=== PATIENT | female | born 1935 | race Caucasian/White ===

== ENCOUNTER 2017-10-30 10:21 | Outpatient (CLI) | payer MEDICARE, MEDICAID ==
--- NOTE | 2017-10-31 11:52 | MMO ---
MAMMOGRAM DIGITAL SCREENING BILATERAL: DATE: 10/30/17 HISTORY: 81-year-old female for routine bilateral screening mammogram. COMPARISON: 07/26/14, 08/05/15, and 10/29/16. TECHNIQUE: Digital mammographic views. Computer-aided detection (CAD) utilized. FINDINGS: There are scattered areas of fibroglandular density. There is no evidence of suspicious mass, suspicious calcifications, or architectural distortion. The re is no significant interval change since the prior mammogram. IMPRESSION: 1. BIRADS 1 - Negative. 2. Recommendation: routine bilateral annual screening mammogram (unless the patient develops suspici ous clinical findings that would warrant earlier imaging follow up). maria victoria [] POS: [facility]
== END 2017-10-30 10:22 | disposition home or self-care (01) ==
LOC: SCSMAMMO 10:21
PROVIDERS: ATTEND Family Medicine
DX: Z12.31 Encounter for screening mammogram for malignant neoplasm of breast (principal)
CPT/HCPCS: 77067; G0202

== ENCOUNTER 2018-02-26 19:28 | Inpatient (IN) | payer MEDICARE, MEDICAID ==
--- NOTE | 2018-02-26 22:40 | HP ---
DATE OF ADMISSION: 02/26/2018 REQUESTING PHYSICIAN: Dr. Rocha. ATTENDING PHYSICIAN: Dr. Back. CONSULTATIONS: Orthopedics, Dr. Richardson. HISTORY OF PRESENT ILLNESS: Patient is an 82-year-old female who was transferred here from [place] for reported left hip fracture. According to the patient this afternoon, she was walking and stepped in a hole and jammed her left hip and fell on it. She was taken to the emergency room, there underw ent evaluation and examination was noted to have an impacted left subcapital proximal femur fracture, at which time, she was transferred to us for evaluation for admission and obtain Orthopedic consulta tion. Patient denied loss of consciousness, shortness of breath, chest pain, or any syncopal type sy mptoms. ALLERGIES: CODEINE, HYDROCODONE, and TRAMADOL. CURRENT MEDICATIONS: Pravastatin, albuterol, pantoprazole, Eliquis, budesonide, baclofen, furosemide , glipizide, spironolactone, metoprolol, ferrous sulfate, and prednisone. PAST MEDICAL HISTORY: COPD, coronary artery disease, atrial fibrillation, peripheral vascular diseas e, osteoporosis, and type 2 diabetes. PAST SURGICAL HISTORY: Bilateral stent placement in lower extremities and cyst removal of abdomen. SOCIAL HISTORY: Patient is a former tobacco user, quit more than 3 years ago. Denies drug or alcoho l use. She currently lives independently at home. FAMILY MEDICAL HISTORY: Diabetes and hypertension. REVIEW OF SYSTEMS: Ten-point review of systems is negative, as otherwise stated. PHYSICAL EXAMINATION: VITAL SIGNS: Blood pressure 108/63, heart rate 91, respirations 16, temperature is 97.5, oxygen satu ration is 96% on 2 L via nasal cannula. GENERAL: Patient is resting comfortably in bed. She is actually sitting on the side of the bed, bec ause she wants to ambulate. This was stressed to her that she should not be doing that with her frac ture. Patient is alert and oriented x2. Marlene coma scale is 15. HEENT: Head is normocephalic, atraumatic. Eyes: Extraocular motion intact. PERRLA bilaterally. E ars are atraumatic without discharge. Nose atraumatic without discharge. Oropharynx is clear. NECK: Nontender. Trachea is midline. No JVD. CHEST: Scattered rhonchi and expiratory wheezes. HEART: Irregularly irregular. ABDOMEN: Soft, flat, nontender with active bowel sounds. Pelvis is stable. EXTREMITIES: Patient's left hip is tender, but surprisingly not distended considering that she has f racture. NEUROVASCULAR: She is intact distally. Capillary refill is approximately 3-4 seconds. Pulses are 1 -2+ in lower extremities. Upper extremities are unremarkable. BACK: Atraumatic and nontender. LABORATORY RESULTS: White blood cell count 17.7, hemoglobin 16.5, hematocrit 46.9, platelets 181. S odium 140, potassium 5.1, chloride 102, CO2 of 28, BUN 22, creatinine 1.13, glucose 110. LFTs are un remarkable. PT 14, INR 1.1, PTT 36.4. RADIOGRAPHS: Two views of the left hip show possible impacted left femoral neck fracture. CT of the left hip without contrast shows an impacted type subcapital left femoral neck fracture. ASSESSMENT AND PLAN: 1. Status post ground level fall. 2. Left femoral neck fracture. 3. Multiple comorbidities. Plan will be to admit the patient to surgical floor. Pain management, pulmonary toilet, gastritis, a nd mechanical deep venous thrombosis prophylaxis. Patient will be evaluated in the morning by Dr. Steve proctor, who was notified of this patient due to the fact that she is on Eliquis. Her surgical repai r would happen would be Saturday. The evaluation, examination, radiographic, and laboratory findings w ill be discussed with Dr. Back after this dictation.
[2018-02-27] MEDS ORDERED: Ondansetron HCl/PF 4 MG/2 ML Vial IVP PRN (01:41)
[2018-02-27] MEDS ORDERED: hydrALAZINE 20 MG/ML VIAL SLOW IVP PRN (01:41)
[2018-02-27] MEDS ORDERED: Dextrose 50% Abboject 50 ML SYRINGE SLOW IVP PRN (01:41)
[2018-02-27] MEDS ORDERED: Insulin Regular 300 UNITS/3 ML VIAL SC PRN (01:41)
[2018-02-27] MEDS ORDERED: Dextrose 5% in Water 1,000 ML IV PRN (01:41)
[2018-02-27] MEDS: Sodium Chloride 0.9% 1,000 ML IV SCH ×2 (02:05→12:50)
[2018-02-27] MEDS: Acetaminophen 1,000 MG in Premix Bag 1 BAG IVPB SCH ×4 (02:06→22:44)
[2018-02-27] MEDS: Morphine 4 MG/ML VIAL SLOW IVP PRN ×2 (02:08→08:32)
[2018-02-27 05:10] LABS: Anion Gap 11 mmol/L (10-20); BUN (Urea Nitrogen) 29 mg/dL (9.8-20.1); Calc. Creatinine Clearance 26 mL/min (70-130); Calcium 8.5 mg/dL (7.8-10.44); Carbon Dioxide 30 mmol/L (23-31); Chloride 101 mmol/L (98-107); Estimated GFR-MDRD 31; Glucose 117 mg/dL (83-110); Potassium 6.2 mmol/L (3.5-5.1); Sodium 136 mmol/L (136-145)
[2018-02-27 05:55] LABS: #Eosinphils 0.1 thou/uL (0.0-0.7); #Lymphocytes 1.1 thou/uL (1.20-3.40); #Monocytes 0.8 thou/uL (0.11-0.59); #Neutrophils 10.4 thou/uL (1.40-6.50); %Basophils 0.2 % (0.0-1.0); %Monocytes 6.7 % (0.0-10.0); %Neutrophils 83.2 % (42.0-75.0); MDiff Complete? YES; Macrocytosis MODERATE=16-30 cells (100X) (0-5/hpf); Mean Corpuscular HGB CONC 32.9 g/dL (32.0-36.0); Mean Corpuscular Hemoglobin 34.7 pg (27.0-31.0); Mean Platelet Volume 7.2 fL (7.4-10.4); PLT Morphology Comment Appears Adequate; Platelet Count 171 thou/uL (130-400); RBC Distribution Width 12.6 % (11.5-14.5); Red Blood Cell (RBC) Count 4.32 mill/uL (4.20-5.40); White Blood Cell (WBC) Count 12.5 thou/uL (4.8-10.8)
[2018-02-27] MEDS ORDERED: Insulin Regular 300 UNITS/3 ML VIAL IVP SCH (08:00)
[2018-02-27] MEDS ORDERED: Calcium Gluconate 4.6 MEQ in Sodium Chloride 0.9% 100 ML IVPB SCH (08:15)
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
[2018-02-27] MEDS ORDERED: Famotidine 20 MG TAB PO SCH (09:00)
[2018-02-27 09:13] LABS: Anion Gap 18 mmol/L (10-20); BUN (Urea Nitrogen) 30 mg/dL (9.8-20.1); Calc. Creatinine Clearance 26 mL/min (70-130); Calcium 8.3 mg/dL (7.8-10.44); Carbon Dioxide 26 mmol/L (23-31); Chloride 102 mmol/L (98-107); Estimated GFR-MDRD 32; Glucose 103 mg/dL (83-110); Potassium 5.7 mmol/L (3.5-5.1); Sodium 140 mmol/L (136-145)
[2018-02-27] MEDS ORDERED: Dextrose 50% Abboject 50 ML SYRINGE SLOW IVP SCH (10:45)
[2018-02-27] MEDS: Ondansetron ODT 4 MG TAB PO PRN (10:57)
[2018-02-27] MEDS: Dextrose 10% in Water 500 ML IV SCH ×2 (11:08→11:09)
[2018-02-27] MEDS ORDERED: Amiodarone HCl 150 MG, Admixture Fee 1 EACH in Dextrose 5% in Water 100 ML IVPB SCH (12:30)
[2018-02-27 13:23] LABS: CKMB 2.5 ng/mL (0-6.6); Troponin I 0.026 ng/mL (< 0.028)
[2018-02-27 13:40] LABS: Anion Gap 17 mmol/L (10-20); BUN (Urea Nitrogen) 32 mg/dL (9.8-20.1); Calc. Creatinine Clearance 25 mL/min (70-130); Calcium 8.9 mg/dL (7.8-10.44); Carbon Dioxide 24 mmol/L (23-31); Chloride 101 mmol/L (98-107); Estimated GFR-MDRD 31; Glucose 161 mg/dL (83-110); Potassium 5.1 mmol/L (3.5-5.1); Sodium 137 mmol/L (136-145)
--- NOTE | 2018-02-27 14:16 | RAD ---
PORTABLE AP CHEST: Date: 02/27/18 HISTORY: Respiratory distress. COMPARISON: 02/11/18. FINDINGS: Cardiac silhouette remains enlarged. Pulmonary vasculature is within normal limits. Vascular calcific ations seen in thoracic aorta. There is left hilar prominence, but this is similar to the prior exam, and this was also noted on the study of 05/26/17. This is likely related to prominence of the main p ulmonary artery, which was visualized on CTA of the thorax on 09/23/15. Linear density seen in the le ft mid lung zone, probably related to mild scarring. Lucency overlying right lung is likely related t o overlying skin fold. Lungs are otherwise clear. There is bilateral glenohumeral osteoarthropathy wi th degenerative changes in the spine. IMPRESSION: 1. No acute cardiopulmonary process. 2. Prominence of the left hilar structures, which is likely attributable to prominence of the left m ain pulmonary artery noted on CTA chest in 2014. In addition, the prominence of the left pulmonary ar august is also seen on prior chest x-rays. 3. No acute cardiopulmonary process. POS: [facility]
--- NOTE | 2018-02-27 15:02 | PRG ---
DATE OF SERVICE: 02/27/2018 SUBJECTIVE: Ms. Joseph is an 82-year-old woman, who is status post fall from a ground-level position. The patient suffered a left femoral neck fracture. She has a history of coronary artery disease, CO PD, chronic atrial fibrillation, peripheral vascular disease, and type 2 diabetes mellitus. She repo rts adequate pain control at this time. She moves all extremities and answering questions. Vital si gns this morning includes blood pressure 101/65, pulse is previously 75-97 beats per minute and irreg ular; however, in the last hour and half patient's heart rate had jumped to over 130. Denies any simon st pain. She does, however, complain of some nausea. She denies any dyspnea. OBJECTIVE: HEENT EXAMINATION: Reveals normocephalic and atraumatic. Pupils equal, round, reactive to light and accommodation. Extraocular muscles are intact bilaterally. No scleral icterus is present. NECK: Patient has no jugular venous distention noted. HEART: Reveals a tachycardia with irregular rate and irregular rhythm. LUNGS: Clear to auscultation bilaterally. Breathing regular and unlabored. ABDOMEN: Soft, nontender, nondistended. Bowel sounds in all 4 quadrants appear normoactive. EXTREMITIES: With 2+ radial and pedal pulses bilaterally. She has no ankle edema present. LABORATORY FINDINGS: Today includes a CBC with 12,500 white blood cells, hemoglobin 15.0, hematocrit is 45.5, platelet count is 171,000. Metabolic profile: Sodium 136, potassium 6.2, chloride is 101, bicarbonate 30, BUN 29, creatinine is 1.58, glucose is 117. A repeat chemistry showed a potassium o f 5.7. BNP is 664.1. A chest x-ray obtained today reveals mild cardiomegaly. There is increase in perihilar markings present. IMPRESSION: 1. Post-injury day #1, status post ground-level fall. 2. A left femoral neck fracture. 3. Acute hyperkalemia. 4. Acute congestive heart failure exacerbation. 5. Acute kidney injury secondary to above. 6. Atrial fibrillation with rapid ventricular response. PLAN: 1. The patient will be transferred to the telemetry unit where we will continue with hospital monitor ing. 2. We will obtain a 2D echocardiography to evaluate cardiac chamber size, function, and rule out any wall motion abnormality. 3. The patient has received some dextrose and insulin to treat the hyperkalemia. 4. We will place also on a bicarbonate infusion as maintenance IV while monitoring her urinary outpu t for this acute kidney injury, which is likely secondary to acute tubular necrosis. 5. We will hold off on any surgical intervention today until the patient is hemodynamically stable.
[2018-02-27] MEDS: Sodium Bicarbonate 100 MEQ in Dextrose 5% in Water 1,000 ML IV SCH (16:16)
[2018-02-27] MEDS: Amiodarone HCl 450 MG, Admixture Fee 1 EACH in Dextrose 5% in Water 250 ML IVPB SCH (16:20)
[2018-02-27] MEDS: Atorvastatin Calcium 10 MG TAB PO SCH (22:44)
[2018-02-28] MEDS: Amiodarone HCl 450 MG, Admixture Fee 1 EACH in Dextrose 5% in Water 250 ML IVPB SCH (01:41)
[2018-02-28] MEDS: Acetaminophen 1,000 MG in Premix Bag 1 BAG IVPB SCH (02:18)
[2018-02-28] MEDS: Morphine 4 MG/ML VIAL SLOW IVP PRN ×3 (02:44→20:34)
[2018-02-28] MEDS: Ondansetron ODT 4 MG TAB PO PRN (02:54)
[2018-02-28] MEDS: Sodium Bicarbonate 100 MEQ in Dextrose 5% in Water 1,000 ML IV SCH (05:30)
[2018-02-28] MEDS ORDERED: CEFAZOLIN/Water 2 GM/20 ML SYRINGE SLOW IVP SCH (08:00)
[2018-02-28 09:16] LABS: Anion Gap 14 mmol/L (10-20); BUN (Urea Nitrogen) 31 mg/dL (9.8-20.1); Calc. Creatinine Clearance 35 mL/min (70-130); Calcium 8.9 mg/dL (7.8-10.44); Carbon Dioxide 28 mmol/L (23-31); Chloride 93 mmol/L (98-107); Estimated GFR-MDRD 45; Glucose 177 mg/dL (83-110); Magnesium 1.9 mg/dL (1.6-2.6); Potassium 5.1 mmol/L (3.5-5.1); Sodium 130 mmol/L (136-145)
[2018-02-28] MEDS: Furosemide 20 MG TAB PO SCH (09:36)
[2018-02-28] MEDS ORDERED: CEFAZOLIN/Water 2 GM/20 ML SYRINGE ONE (11:15)
[2018-02-28] MEDS ORDERED: Metoprolol Tartrate 50 MG TAB PO SCH ×2 (11:30→21:00)
[2018-02-28] MEDS ORDERED: Metoprolol Tartrate 5 MG/5 ML VIAL ONE (11:40)
--- NOTE | 2018-02-28 12:05 | PRG ---
DATE OF SERVICE: 02/28/2018 HISTORY OF PRESENT ILLNESS: This is an 82-year-old woman who is post-injury day #2, status post grou nd level fall. The patient sustained a left femoral neck fracture. She has been evaluated by Therese dawson and pending operative intervention. She has significant comorbidities including coronary artery di sease, COPD, chronic atrial fibrillation and peripheral vascular disease as well as type 2 diabetes m ellitus. Yesterday she developed acute onset of atrial fibrillation exacerbation with rapid ventricu lar response. This was secondary to acute congestive heart failure. The patient was transferred to telemetry and started on amiodarone by continuous infusion. She was also placed on diuretics. Overn ight, she reports no dyspnea. She complains of occasional nausea, but no emesis. She denies any simon st pain. She remains in atrial fibrillation with rate controlled. OBJECTIVE: VITAL SIGNS: This morning includes blood pressure 143/75, pulse is 85-109 and irregular, respiratory rate is 20, temperature is 98.8 degrees Fahrenheit, oxygen saturation is 96% on 1 liter by nasal can nula oxygen. HEENT: Examination reveals normocephalic and atraumatic. Pupils are equal, round, reactive to light and accommodation. She has no sclerae icterus present. She has no jugular venous distention noted. HEART: Reveals irregular rate and irregular rhythm. LUNGS: Clear to auscultation bilaterally. Breathing is regular and unlabored. ABDOMEN: Soft, nontender, nondistended. EXTREMITIES: Reveals 2+ radial and pedal pulses bilaterally. No ankle edema is present. NEUROLOGIC: Examination reveals no focal deficits present. LABORATORY DATA AND IMAGING DATA: Laboratory findings today includes metabolic profile; sodium 130, potassium is 5.1, chloride is 93, bicarbonate is 28, BUN is 31, creatinine is now 1.16, glucose is 17 7, magnesium is 1.9, and phosphorus is 3.0. I have reviewed transthoracic echocardiogram, which was obtained yesterday, which is remarkable for moderately enlarged right ventricle. There is also mildl y dilated left atrium. Left ventricular ejection fraction noted at 15%-20%. Left ventricular size i s moderately enlarged. IMPRESSION: 1. Post-injury day #2, status post ground level fall with left femoral neck fracture. 2. Acute systolic congestive heart failure exacerbation. 3. Atrial fibrillation with rapid ventricular response secondary to acute congestive heart failure. PLAN: 1. Continue diuresis with fluid restriction while monitoring urinary output as endpoint of resuscita tion. We will also monitor the patient's serum creatinine as the acute kidney injury resolves. 2. We will continue with amiodarone for rate control. 3. We will ask Cardiology to evaluate the patient for management of the chronic dilated cardiomyopat hy. 4. The patient is certainly stable to undergo a percutaneous screw fixation of the left femoral neck fracture. She is at moderate risk for perioperative cardiac event.
[2018-02-28] MEDS ORDERED: Ketamine 50 MG/ML VIAL ONE (12:09)
[2018-02-28] MEDS ORDERED: Bupivacaine HCl 0.5%/Epinephrine 1:200,000/PF 30 ml Vial ONE (12:42)
--- NOTE | 2018-02-28 13:30 | OP ---
DATE OF OPERATION: 02/28/2018 OPERATION: Left femoral neck fracture, percutaneous screw fixation. PREOPERATIVE DIAGNOSIS: Left femoral neck fracture. POSTOPERATIVE DIAGNOSIS: Left femoral neck fracture. COMPLICATIONS: None. ESTIMATED BLOOD LOSS: Minimal. SURGEON: Kavon Richardson M.D. ANESTHESIA: Local with sedation. IMPLANTS: Three 7.3 mm cannulated screws were used. INDICATIONS: Ms. Joseph is an 82-year-old female who fractured her left femoral neck. She has been in dicated for percutaneous screw fixation to restore alignment and hold her fracture while that heals. Risks have been reviewed in detail. She has elected to proceed with the operation. Risks to includ e pulmonary complications, cardiac complication, nerve or vascular injury, infection, hardware failur e, avascular necrosis, need for further surgery and others. DESCRIPTION OF PROCEDURE: Ms. Joseph was identified in the preoperative holding area. Her correct ext remity was marked. She was carried to the operating room. She was positioned supine. General anest hesia was induced. A multidisciplinary timeout was performed. The left lower extremity was prepped and draped in sterile fashion. We began the procedure with evaluation of the fracture under x-ray. We took intraoperative images. The femoral neck fracture was well reduced. We then made a small incision over the lateral thigh. W e dissected down through the subcutaneous tissues. We inserted a guidewire through the lateral femur into the femoral head and inferior position. Next, we placed two more proximal guidewires in an inv erted triangle pattern. These were confirmed with intraoperative x-ray. Finally, we placed 7.3 mm c annulated screws after drilling appropriately. At this point, we took final images. We thoroughly i rrigated. We closed our wound. The patient was taken to the recovery room in good condition.
[2018-02-28] MEDS ORDERED: Digoxin 0.5 MG/2 ML AMP SLOW IVP SCH (16:00)
[2018-02-28] MEDS: DOPamine 400 MG/D5W 250 ML 250 ML IVPB SCH (16:32)
[2018-02-28] MEDS ORDERED: PHENYLEPHRINE-NS 100 MCG/ML 10 ML SYRINGE ONE (17:13)
[2018-02-28] MEDS: Metoprolol Tartrate 50 MG TAB PO SCH (20:26)
[2018-02-28] MEDS: Atorvastatin Calcium 10 MG TAB PO SCH (20:43)
[2018-02-28] MEDS: CEFAZOLIN/Water 2 GM/20 ML SYRINGE SLOW IVP SCH (20:43)
[2018-02-28] MEDS: Digoxin 0.5 MG/2 ML AMP SLOW IVP SCH (21:16)
[2018-02-28] MEDS ORDERED: Furosemide 40 MG/4 ML VIAL SLOW IVP SCH (22:15)
--- NOTE | 2018-02-28 23:38 | RAD ---
INTRAOPERATIVE FLUOROSCOPIC IMAGES LEFT HIP: 02/28/18 HISTORY: Internal fixation right femoral neck fracture. FINDINGS: Eight intraoperative fluoroscopic images are submitted for interpretation. Images demonstrate three l rosalee screws transfixing the subcapital left femoral neck fracture noted on study of 02/26/18. No hardwa re complication is seen. IMPRESSION: Internal fixation of left femoral neck fracture. POS: [facility]
[2018-03-01] MEDS: Morphine 4 MG/ML VIAL SLOW IVP PRN ×2 (00:17→18:12)
--- NOTE | 2018-03-01 01:04 | CON ---
DATE OF CONSULTATION: 02/28/2018 PRIMARY CARE PHYSICIAN: Dr. Cameron Warner. PRIMARY BUSINESS DATA ANALYST: Dr. Vazquez in [facility] The patient's freelance graphic designer is in the [facility], Dr. Sams. REFERRING PHYSICIAN: Dr. Dontae Lord. REASON FOR CARDIOLOGY CONSULTATION: Cardiomyopathy. HISTORY OF PRESENT ILLNESS: Ms. Joseph is an 82-year-old female with significant history of chronic severe systolic heart failure with known ischemic cardiomyopathy 20% to 25% LVEF, chronic per sistent atrial fibrillation and COPD, severe peripheral vascular disease, chronic kidney disease stag e 2. Today patient underwent a left femoral percutaneous screw fixation for left femoral neck fractu re. Cardiology consult was orders due to the patient. The history of nonischemic cardiomyopathy wit h low EF. The patient's echocardiogram in 02/27/2018 shows EF of 15% to 20%, mildly dilated left atr ium, moderate enlarged right atrium size stitch moderately enlarged bilateral ventricular cavity and moderate mitral valve regurgitation, mild aortic valve regurgitation, mild to moderate tricuspid regu rgitation, and right ventricular systolic pressure was dilated IVC pressure. She is seen and also sh e is found to have atrial fibrillation with rapid ventricular response that reason, the patient was t ransferred from the medical floor to telemetry floor for continue observation on the telemetry. At t his moment, the patient was really drowsy due to after the procedure, patient's information are obtai corazon from patient's family. Prior to this admission favors, the patient living by herself independent ly. Family was living close by managing her medication other than that she taking care of by herself , most of all the time herself. She already complain of shortness of breath, chronic fatigue and swe lling in the bilateral lower extremities, dizziness, and she uses home O2, 2 liters nasal cannula for history of systolic congestive heart failure and COPD. According family, the patient has discussed with Dr. Sams and Dr. Vazquez about defibrillator placement. However, every time after every m eeting with the doctors discussing about a defibrillator placement, the patient's postpone the decisi on. At this moment, the patient's family member are unsure that whether patient decided to have AICD or not. EP consult was done during the hospitalization in 12/2016 and she was told that she is not a good candidate for pulmonary vein isolation procedure for patient's chronic atrial fibrillation. Echocardiogram on 02/27/2018 shows EF of 15% to 20%, moderately dilated left atrium and a moderate en larged right atrium and moderate enlarged right ventricular cavity. The left ventricular size, moder ate increase moderate mitral valve regurgitation, mild aortic valve regurgitation, mild to moderate t ricuspid regurgitation and right ventricular systolic pressure was elevated . She underwent car diac catheterization in 03/2015, which shows EF of 70% with 50% of stenosis mid RCA. She has cardiov ersion, was done in 09/2016. PAST MEDICAL HISTORY: Peripheral artery disease and status post peripheral stent in the bilateral fe moral arteries per patient's family's report. MEDICAL HISTORY: 1. Persisted atrial fibrillation. 2. Chronic obstructive pulmonary disease. 3. Hypertension. 4. Peripheral artery vascular disease. 5. Hyperlipidemia. 6. Chronic kidney disease, stage 2. 7. Ex-smoker. 8. Bilateral history is hard to hearing. She wears bilateral hearing aid. PAST SURGICAL HISTORY: 1. Appendectomy. 2. Abdomen cyst removed. 3. Stent placement in the bilateral femoral arteries by Dr. [place]. FAMILY HISTORY: There significant family history of diabetes and hypertension. SOCIAL HISTORY: She is a . She lives in prior to this admission. She is living independ [facility] and the family lives close by and managed her medication. She smoked 1 pack a day about 30-40 years. She quit recently. She had a moderate ETOH abuse in the past, but family denies she is smoki ng, ETOH, or illicit drug abuse. ALLERGIES: She has allergies to TRAMADOL and HYDROCODONE. CURRENT MEDICATIONS: She is on Eliquis 2.5 for sure at this moment, the family members cannot rememb er the patient's current medication. They state they are going to bring her current medication list from her home. REVIEW OF SYSTEMS: A complete review of systems was negative, unless otherwise mentioned in the HPI or below. CONSTITUTIONAL: Weight loss or gain, sense of well-being, ability to conduct usual activities, exerc ise tolerance. SKIN: Rash, itching, change of hair growth or nail change, breast lump, tenderness, swelling, nipple discharge. EYES: Vision change, double vision, tearing blind spots, pain. ENT: Headache, vertigo, lightheadedness, nasal bleeding, cold, obstruction, discharge in gingival bl eeding. She has upper and lower dentures, but denies any neck stiffness or pain, tenderness, mass in the thyroid or other areas. CARDIOVASCULAR: Precordial pain, substernal distress, palpitations, syncope, dyspnea on exertion, cl audication. RESPIRATORY: Respiratory pain, positive for shortness of breath. She uses home O2 for history of CO PD. GASTROINTESTINAL: Poor appetite, dysphagia, indigestion, abdominal pain, heartburn, eructation, naus ea, vomiting, hematemesis, jaundice, constipation, diarrhea, abnormal stool or blood in the stool. GENITOURINARY: Urgency, frequency, dysuria, nocturia, hematuria, polyuria, oliguria, unusual color o f urine. MUSCULOSKELETAL: Pain, swelling, redness or heat of muscle or joint, limit of motion. NEUROLOGIC: Conversion paralyzed, tremor, incoordination. PSYCHIATRIC: Emotional problem, anxiety, depression, those information obtained from the patient's f amily member. PHYSICAL EXAMINATION: VITAL SIGNS: The blood pressure 90/52, pulse is 100 with atrial fibrillation, O2 sat 94% with 2 lite rs, respiratory rate 14. GENERAL: Well-developed, well-nourished without any acute distress at this moment, but she is waking up from dysphagia for the surgery. HEAD: Normocephalic and atraumatic. EYES: Extraocular muscle movement intact. ENT: Oral and nasal mucosa are moist without lesion. NECK: No JVD. Neck supple, normal range of motion. LUNGS: Coarse diminished at the bases. No wheezing, rales, or rhonchi noted. CARDIOVASCULAR: Irregularly irregular. There is significant murmur to bilateral middle sternal bord er, but no hives, thrill, bruit, or rub noted. EXTREMITIES: 2+ in pulses in the dorsal pedis, posterior tibial, and popliteal and femoral pulses. Carotid pulse present. No edema in the bilateral lower extremities at this moment. ABDOMEN: Soft, nontender or mass to palpate. Bowel sounds are present but hypoactive. MUSCULOSKELETAL: At this moment, she is drowsy. She could not follow any command. SKIN: Warm and dry. No skin rash, lesion, or bruise noted. NEUROLOGIC: She is drowsy from postop surgery. PSYCHIATRIC: Again, patient is still drowsy this moment. EKG: Telemetry records shows that the patient is in atrial fibrillation with rapid ventricular respo nse. LABORATORY DATA: WBC 12.5, hemoglobin 15.0, hematocrit 45.5, and platelet 171. Sodium 130, potassiu m 5.1, BUN 31, creatinine 1.16, glucose 177. BNP 664, CK-MB 2.5, troponin 0.026. ASSESSMENT AND PLAN: 1. Severe systolic congestive heart failure with nonischemic cardiomyopathy. Patient's EF has being less than 35% since [address] Sams's office note also catheterization lab in 2015 sh ows EF of 70% and also echocardiogram during this admission shows EF of 15% to 20%. She have been di scussed with freelance graphic designer and landcare officer about automatic implantable cardioverter defibrilla tor placement. At this moment, the patient have decided yet. Once the patient's condition is stable , we can discuss with the patient include the family about possible automatic implantable cardioverte r defibrillator placement. At this moment, the patient's blood pressure is low like systolic blood p ressure in the 70s to 80s. We are going to start dobutamine 2.5 mg per kg per minute, she is on Lasi x 20 mg p.o. once a day. We have to monitor the patient the fluid intake very closely due to a very low ejection fraction right at this moment and if patient cannot tolerate dopamine, we like to change possible Levophed, but at that time patient must be transferred to the CCU. 2. Atrial fibrillation with rapid ventricular response due to hypotensive, we stopped amiodarone dri p at this moment and instead we start digoxin, IV push, and a possible diltiazem drip if digoxin IV p ush cannot control the patient's heart rate. 3. Postop left femoral neck fracture repair. At this moment, the patient's condition is stable at t his moment, which is managed by the trauma team. 4. Chronic obstructive pulmonary disease. The patient's breathing is stable with 2 liters nasal can nula, which is managed by primary care doctor. 5. Chronic kidney disease stage 2. Patient's creatinine level is slightly elevated at this moment; however, have been changed since admission. We like to continue to monitor. 6. Peripheral artery vascular disease, history of bilateral stent placement. At this moment, she morales s good pulses in the bilateral lower extremities and skin is warm. We like to continue to monitor. 7. Hyperlipidemia. The patient on starting atorvastatin 10 mg once a day. Thank you very much for allowing Cardiology Service to participate in the care of this patient. We w ill follow along with the patient care team and make further recommendations as appropriate.
[2018-03-01] MEDS ORDERED: Diltiazem 125 MG in Sodium Chloride 0.9% 100 ML IVPB PRN (04:30)
[2018-03-01] MEDS ORDERED: Digoxin 0.5 MG/2 ML AMP SLOW IVP SCH (05:15)
[2018-03-01] MEDS: CEFAZOLIN/Water 2 GM/20 ML SYRINGE SLOW IVP SCH (05:28)
[2018-03-01] MEDS: Digoxin 0.5 MG/2 ML AMP SLOW IVP SCH (05:29)
[2018-03-01] MEDS ORDERED: Furosemide 40 MG/4 ML VIAL SLOW IVP SCH (06:00)
[2018-03-01 06:28] LABS: Calcium 8.3 mg/dL (7.8-10.44); Chloride 92 mmol/L (98-107); Phosphorus 2.4 mg/dL (2.3-4.7); Potassium 4.8 mmol/L (3.5-5.1); Sodium 133 mmol/L (136-145)
[2018-03-01 06:30] LABS: Magnesium 1.7 mg/dL (1.6-2.6)
[2018-03-01 06:31] LABS: Glucose 96 mg/dL (83-110)
[2018-03-01 06:32] LABS: Anion Gap 16 mmol/L (10-20); Carbon Dioxide 28 mmol/L (23-31)
[2018-03-01 06:34] LABS: Calc. Creatinine Clearance 37 mL/min (70-130); Estimated GFR-MDRD 49
[2018-03-01 06:35] LABS: BUN (Urea Nitrogen) 24 mg/dL (9.8-20.1)
[2018-03-01] MEDS: Metoprolol Tartrate 50 MG TAB PO SCH (08:54)
[2018-03-01] MEDS ORDERED: Digoxin 0.125 MG TAB PO SCH (09:00)
--- NOTE | 2018-03-01 10:18 | PDOC.CTH ---
<Chantelle Veras - Last Filed: 03/01/18 13:47> Cardiology Progress Note - Subjective Sitting up on side of bed, complaints of feeling weak, tired. Complains pain to left hip. Feels short of breath, denies chest pain, discomfort. Complains of being dizzy"all the time". - ROS dizziness, shortness of breath - Objective Vital Signs Temp Pulse Resp BP Pulse Ox 03/01/18 09:58 100 03/01/18 09:56 74 18 03/01/18 08:54 86 03/01/18 08:50 97.3 F L 84 18 99/56 L 93 L 03/01/18 08:00 97.3 F L 86 18 93 L 03/01/18 05:37 86 03/01/18 05:29 86 03/01/18 04:00 99.3 F 86 24 H 93/52 L 94 L Weight 130 lb 1.164 oz 02/28/18 03/01/18 03/02/18 06:59 06:59 06:59 Intake Total 307 Output Total 600 750 Balance -600 -443 - Physical Examination General/Neuro: alert & oriented x3 Neck: no JVD present, other: (supple) Lungs: unlabored respirations (scattered rhonchi) Heart: other: (irregularly irregular, ) Abdomen: no HSM, NT/ND, soft - Telemetry Telemetry Rhythm: AFib 70s-90s - Labs Result Diagrams: 02/27/18 04:30 03/01/18 06:01 Troponin/CKMB CK-MB (CK-2) 2.5 ng/mL (0-6.6) 02/27/18 12:26 Troponin I 0.026 ng/mL (< 0.028) 02/27/18 12:26 - Assessment/Plan 1. S/P fall with L hip fracture, s/p femoral neck perc screw fixation 02/28- followed by ortho/trauma service 2. Persistent AFib c/ RVR-loaded c/ IV dig, now PO daily, now rate controlled. Stop metoprolol for now. 3.Severe systolic HF c/ nonischemic CM-echo 02/27 revealed EF 15%-20%-EF < 35% since 2012, appropriate for ICD insertion-patient has not made final decision re : this. Hypotensive-started on Dopamine gtt 02/28, 2.5 mcg/kg/min, BP improved, 105/51 4. COPD-stable on 2L via NC 5. CKD Stage II-stable, creat 1.08 this am 6. PVD-bilateral stent placement in past, normal pulses to BLE 7. CAD-s/p stent placement 2004 & 2015, continue statin <Martha Pastor - Last Filed: 03/01/18 13:51> Cardiology Progress Note - Objective Vital Signs Temp Pulse Resp BP Pulse Ox 03/01/18 09:58 100 03/01/18 09:56 74 18 03/01/18 08:54 86 03/01/18 08:50 97.3 F L 84 18 99/56 L 93 L 03/01/18 08:00 97.3 F L 86 18 93 L 03/01/18 05:37 86 03/01/18 05:29 86 03/01/18 04:00 99.3 F 86 24 H 93/52 L 94 L Weight 130 lb 1.164 oz 02/28/18 03/01/18 03/02/18 06:59 06:59 06:59 Intake Total 307 Output Total 600 750 Balance -600 -443 - Labs Result Diagrams: 02/27/18 04:30 03/01/18 06:01 Troponin/CKMB CK-MB (CK-2) 2.5 ng/mL (0-6.6) 02/27/18 12:26 Troponin I 0.026 ng/mL (< 0.028) 02/27/18 12:26 - Assessment/Plan Patient in iv dopamine and moderate dose beta blockers. Will reduce metoprolol dose, hopefully wean off dopamine.
[2018-03-01] MEDS: Scopolamine 1.5 mg/72 hour Patch TD SCH (10:44)
--- NOTE | 2018-03-01 11:25 | ADD-CON ---
DATE OF CONSULTATION: 02/28/2018 ADDENDUM Please refer to the notes dictated by my nurse practitioner, Abigail. INDICATION FOR CONSULTATION: An 82-year-old female with a history of severe cardiomyopathy, chronic atrial fibrillation with a left hip fracture who underwent surgical repair. We were asked to see her due to her atrial fibrillation with rapid ventricular response and due to the cardiomyopathy. At th is time, she is status post hip repair, which was I believe done earlier today and she apparently did relatively well with that. She is now in the telemetry unit on IV amiodarone due to the atrial fibr illation with rapid ventricular response. At this time, she is somewhat hypotensive. We will hold o ff on the amiodarone since she has chronic atrial fibrillation. She had previously been on the beta blockers. I believe digoxin have been tried also in the past. Repeat echocardiogram showed severe d ecrease in left ventricular function with ejection fraction less than 20%. There has been discussion in the past about possible AICD and this has been refused. She also had a discussion with Dr. Cleveland, I believe in the last 1-2 years, about a year and half ago, at which time, there was some discussion about her atrial fibrillation with a possible ablation, but at that time they opted for medical hilaria connors. She had been doing relatively well. She was staying at home and then she stepped into a dog hole just the last day or so and fractured her left hip, required relatively urgent repair of the hi p fracture. At this time, she is somewhat lethargic. She has come back to the room from after paddy g her surgical hip repair, which was done just a few hours ago. The family is at the bedside and the y do give some of the history of the patient. At this time, the most important problem in hand is to control the heart rate and to actually increase her blood pressure. Her blood pressure has been at times in the 70-80 systolically. Her heart rate has been in the 120s. I will reinstate her digoxin. We will add diltiazem if she tolerates. She may need volume replacement, but obviously with her si gnificant decrease in ejection fraction, she presents a somewhat difficult situation. PHYSICAL EXAMINATION: GENERAL: Reveals an elderly, very fragile, ill-appearing female. She is lethargic and appears to be somewhat still sedated after her surgical procedure earlier today. VITAL SIGNS: Her blood pressure is at this time about 90/50, that has been lower. Her heart rate is in the 100s, respiratory rate is about 16. She is afebrile. HEENT: Shows the head to be normocephalic, atraumatic. Her carotid pulses are present. I did not h ear any significant bruits at this time. CHEST: Has decreased breath sounds. She has fine bibasilar crackles or rales noted. CARDIOVASCULAR: Irregularly irregular. She does have a systolic murmur at the lower sternal border and also at the apex. ABDOMEN: Shows the abdomen to be soft, flat, and nontender. EXTREMITIES: Shows incisional area, which is covered on the left hip area. She has no edema. I can not palpate pedal pulses nor popliteal pulses. NEUROLOGIC: The patient had had a recent sedation and is still lethargic from her recent surgery. IMPRESSION: 1. Chronic atrial fibrillation with rapid ventricular response. We will start her on digoxin for ra te control. Once the blood pressure stabilized, we can reinstate the beta blockers. I would not put her on amiodarone at this time due to most likely she has also chronic obstructive pulmonary disease and underlying lung disease, and she has chronic atrial fibrillation and most likely this will add v yanni much unless she starts to have ventricular arrhythmias. 2. History of severe cardiomyopathy for which the patient has decided she does not want a defibrilla tor at least that is what I was told. This can be rediscussed when the patient is more alert. She h as been followed by static balancer at [facility] most recently. 3. Peripheral vascular disease. I believe she has undergone possible stent placements in the past. 4. History of tobacco abuse. She does not smoke any more. 5. History of recent hip fracture, which has been repaired. 6. History of hypertension. She is hypotensive at this time. There is also history of coronary art yanni disease. She did undergo a cardiac catheterization in 2007. I did not believe she has had any b ypass surgery or any stent placements. She was found to have a 50% right coronary artery stenosis at that time. She also had [id number] mitral valve regurgitation. She has been on chronic ant icoagulation therapy for her atrial fibrillation. We would be more than happy to continue to follow the patient with you throughout her hospital stay; however, this patient obviously is a very ill starr ent. Her prognosis overall is obviously not very good.
[2018-03-01] MEDS ORDERED: Promethazine HCl 12.5 MG, Admixture Fee 1 EACH in Sodium Chloride 0.9% 100 ML IVPB PRN (13:01)
[2018-03-01] MEDS ORDERED: Promethazine HCl 12.5 MG, Admixture Fee 1 EACH in Sodium Chloride 0.9% 50 ML IVPB PRN (13:16)
--- NOTE | 2018-03-01 14:22 | PRG ---
DATE OF SERVICE: 03/01/2018 SUBJECTIVE: This is an 82-year-old woman with history of severe COPD, coronary arterial di sease, chronic atrial fibrillation, and peripheral vascular disease. The patient is postoperative day #1 status post percutaneous screw fixation of left femoral neck frac ture. She remains in atrial fibrillation albeit now rate controlled. She was placed on digoxin yest erday. Currently, she is on dopamine by continuous infusion at 2.5 mcg per kilogram per minute. She was given furosemide last night with good response and adequate urinary output. This morning, she r eports adequate pain control. She complains of residual nausea with movement. OBJECTIVE: VITAL SIGNS: Currently includes blood pressure 99/56, pulse 84, respiratory rate is 18, temperature is 97.3 degrees Fahrenheit, oxygen saturation 93% on 2 liters by nasal cannula oxygen. HEENT: Reveals normocephalic and atraumatic. Pupils are equal, round, and reactive to light and acc ommodation. NECK: She has no jugular venous distention noted. HEART: Reveals irregular rate and irregular rhythm. LUNGS: Clear to auscultation bilaterally. Breathing regular and unlabored. ABDOMEN: Soft, nontender, nondistended. Liver and spleen nonpalpable below costal margin. EXTREMITIES: Reveals 2+ radial and pedal pulses bilaterally. She has no ankle edema present. NEUROLOGIC: Reveals no focal deficits present. LABORATORY DATA: Metabolic profile: Sodium 133, potassium is 4.8, chloride is 92, bicarbonate 28, B UN 24, creatinine is 1.08, glucose is 96, magnesium 1.7, phosphorus is 2.4. IMPRESSION: 1. Postoperative day #1, status post screw fixation, left femoral neck fracture. 2. Atrial fibrillation, which is now rate controlled. 3. Acute congestive heart failure exacerbation, improved. 4. Acute hypomagnesemia. 5. Acute hypophosphatemia. PLAN: 1. Correct abnormal electrolytes. 2. Discussed with Cardiology regarding the use of beta maria e in this patient, who is currently now on dopamine. They will be considering tapering and discontinuation of the beta maria e. 3. Correct abnormal electrolytes. 4. Initiate physical and occupational therapy. The patient has improved. 5. Acute kidney injury. We will continue to monitor her urinary output and creatinine as endpoint o f resuscitation and avoid nephrotoxic agents. Above findings and plan discussed with the patient who indicates understanding of the information giv en. I answered her questions.
[2018-03-01] MEDS: Furosemide 20 MG TAB PO SCH (15:01)
[2018-03-01] MEDS: Atorvastatin Calcium 10 MG TAB PO SCH (21:29)
[2018-03-01] MEDS: Metoprolol Tartrate 25 MG TAB PO SCH (21:29)
[2018-03-01] MEDS: DOPamine 400 MG/D5W 250 ML 250 ML IVPB SCH (21:29)
[2018-03-02 05:40] LABS: #Eosinphils 0.1 thou/uL (0.0-0.7); #Lymphocytes 1.1 thou/uL (1.20-3.40); #Monocytes 0.7 thou/uL (0.11-0.59); #Neutrophils 6.9 thou/uL (1.40-6.50); %Basophils 0.2 % (0.0-1.0); %Eosinophils 0.9 % (0.0-10.0); %Lymphocytes 12.8 % (21.0-51.0); %Monocytes 7.4 % (0.0-10.0); %Neutrophils 78.7 % (42.0-75.0); Hemoglobin 14.2 g/dL (12.0-16.0); Mean Corpuscular Hemoglobin 34.3 pg (27.0-31.0); Platelet Count 137 thou/uL (130-400); RBC Distribution Width 12.5 % (11.5-14.5); Red Blood Cell (RBC) Count 4.14 mill/uL (4.20-5.40); White Blood Cell (WBC) Count 8.7 thou/uL (4.8-10.8)
[2018-03-02 06:07] LABS: Anion Gap 12 mmol/L (10-20); BUN (Urea Nitrogen) 36 mg/dL (9.8-20.1); Calc. Creatinine Clearance 41 mL/min (70-130); Calcium 9.1 mg/dL (7.8-10.44); Carbon Dioxide 36 mmol/L (23-31); Chloride 92 mmol/L (98-107); Estimated GFR-MDRD 54; Glucose 88 mg/dL (83-110); Phosphorus 3.1 mg/dL (2.3-4.7); Potassium 4.7 mmol/L (3.5-5.1); Sodium 135 mmol/L (136-145)
[2018-03-02 06:23] LABS: Digoxin 2.84 ng/mL (0.8-2.0)
--- NOTE | 2018-03-02 08:48 | EKG ---
Test Reason : Blood Pressure : / mmHG Vent. Rate : 110 BPM Atrial Rate : 120 BPM P-R Int : 000 ms QRS Dur : 112 ms QT Int : 382 ms P-R-T Axes : 000 168 085 degrees QTc Int : 516 ms Atrial fibrillation with rapid ventricular response Indeterminate axis Septal infarct (cited on or before 26-FEB-2018) Abnormal ECG Confirmed by BRANDI LOPEZ MD ([id number]) on 03/02/2018 8:47:41 AM Referred By: Rodrick OLIVERA PA-C Confirmed By:BRANDI LOPEZ MD
[2018-03-02] MEDS: Metoprolol Tartrate 25 MG TAB PO SCH ×2 (09:36→20:44)
[2018-03-02] MEDS: Furosemide 20 MG TAB PO SCH (09:36)
[2018-03-02] MEDS ORDERED: DOPamine 400 MG/D5W 250 ML 250 ML IVPB SCH ×2 (09:45→12:00)
--- NOTE | 2018-03-02 10:10 | PDOC.CTH ---
<Chantelle Veras - Last Filed: 03/02/18 14:42> Cardiology Progress Note - Subjective Resting, awakens to verbal stimuli. Had DHT placed this morning, states is uncomfortable. Denies chest pain, shortness of breath. No overnight events. BP has improved-weaning Dopamine to off. Denies acute pain to left hip. - Objective Vital Signs Temp Pulse Resp BP Pulse Ox 03/02/18 08:42 80 26 H 03/02/18 07:30 99.3 F 75 18 112/62 94 L 03/02/18 04:00 81 18 94/52 L 03/02/18 00:27 94 L Weight 130 lb 1.164 oz 03/01/18 03/02/18 03/03/18 06:59 06:59 06:59 Intake Total 307 480 200 Output Total 750 550 385 Balance -443 -70 -185 - Physical Examination General/Neuro: alert & oriented x3, other: (ill-appearing) Neck: no JVD present Lungs: unlabored respirations, other: (shallow respirations, dim post bilateral bases) Heart: other: (Irregularly irregular) Abdomen: soft Extremities: other: Other PE findings: No edema to BLE, able to move all extremities - Telemetry Telemetry Rhythm: AFib 60s-80s - Labs Result Diagrams: 03/02/18 05:17 03/02/18 05:17 Troponin/CKMB CK-MB (CK-2) 2.5 ng/mL (0-6.6) 02/27/18 12:26 Troponin I 0.026 ng/mL (< 0.028) 02/27/18 12:26 - Assessment/Plan 1. S/P fall with L hip fracture, s/p femoral neck perc screw fixation 02/28- followed by ortho/trauma service 2. Persistent AFib c/ RVR-now rate controlled, digoxin level this am 2.84-stop digoxin. Continue Toprol XL 12.5mg BID. 3.Severe systolic HF c/ nonischemic CM-echo 02/27 revealed EF 15%-20%-EF < 35% since 2012, appropriate for ICD insertion-patient has not made final decision re : this. BPs improved, sustaining 130s systolic, wean Dopamine to off. 4. COPD-stable on 2L via NC 5. CKD Stage II-stable, creat 0.99 this am 6. PVD-bilateral stent placement in past, normal pulses to BLE <Martha Pastor - Last Filed: 03/02/18 14:44> Cardiology Progress Note - Objective Vital Signs Temp Pulse Resp BP BP Pulse Ox 03/02/18 11:55 98.1 F 86 20 123/62 96 03/02/18 08:42 80 26 H 03/02/18 07:30 99.3 F 80 20 112/62 96 03/02/18 04:00 81 18 94/52 L Weight 130 lb 1.164 oz 03/01/18 03/02/18 03/03/18 06:59 06:59 06:59 Intake Total 307 480 200 Output Total 750 550 385 Balance -443 -70 -185 - Labs Result Diagrams: 03/02/18 05:17 03/02/18 05:17 Troponin/CKMB CK-MB (CK-2) 2.5 ng/mL (0-6.6) 02/27/18 12:26 Troponin I 0.026 ng/mL (< 0.028) 02/27/18 12:26 Attending Addendum - Attending Addendum Date/Time: 03/02/18 [id number] I personally evaluated the patient and discussed the management with Chantelle Veras MEDICAID BILLING SPECIALIST I agree with the History, Examination, Assessment and Plan documented above with any addition or exceptions noted below.
[2018-03-02] MEDS: Morphine 4 MG/ML VIAL SLOW IVP PRN (10:49)
--- NOTE | 2018-03-02 12:50 | PRG ---
DATE OF SERVICE: 03/02/2018 SUBJECTIVE: This is an 82-year-old woman who is postoperative day #2, status post percutaneous pinni ng of left femoral neck fracture. The patient is currently on dopamine 2.5 mcg per kilogram per reginaldo te, blood pressure is in excess of 130 systolic. The patient is currently anorexic. She refuses to eat, does not like the taste of food. She is quite fatigued. OBJECTIVE: VITAL SIGNS: Currently includes blood pressure 135/62, pulse is 75, respiratory rate is 18, temperat ure is 99.3 degrees Fahrenheit, oxygen saturation is 94% on 2 liters by nasal cannula oxygen. HEENT: Reveals normocephalic and atraumatic. Pupils equal, round, and reactive to light and accommo dation. No jugular venous distention noted. HEART: Reveals irregular rate and irregular rhythm, rate controlled. LUNGS: Reveals scattered rhonchi. Breathing regular and unlabored. ABDOMEN: Soft, nontender, nondistended. EXTREMITIES: Reveals 2+ radial and pedal pulses bilaterally. No ankle edema is present. NEUROLOGIC: Reveals no focal deficits present. LABORATORY DATA: Today includes a CBC with 8700 white blood cells, hemoglobin and hematocrit stable at 14.2 and 43.0 respectively. Platelet count is 137,000. Metabolic profile: Sodium 135, potassium is 4.7, chloride is 92, bicarbonate is 36, BUN is 36, creatinine is 0.99, glucose is 88, magnesium 2 .0, phosphorus 3.1. IMPRESSION: 1. Postoperative day #2, status post percutaneous pinning left femoral neck fracture. 2. Acute congestive heart failure exacerbation, improving. 3. Dilated cardiomyopathy, stable. 4. Chronic malnutrition. PLAN: 1. I discussed with the patient today the need to improve on her nutritional intake. She is agreeab le to placement of a nasogastric tube for enteral nutritional supplementation. I was able to place a Dobbhoff tube without incident and tube feeds will be initiated. 2. We will continue with physical and occupational therapy. 3. We will wean the dopamine to off.
--- NOTE | 2018-03-02 12:52 | RAD ---
ABDOMEN 1 VIEW: Date: 03/02/18 HISTORY: New feeding tube. COMPARISON: None. FINDINGS: The feeding tube tip is in the gastric antrum. Lung bases appear relatively clear. IMPRESSION: Feeding tube tip in gastric antrum. Recommend advancing. POS: [facility]
[2018-03-02] MEDS: Atorvastatin Calcium 10 MG TAB PO SCH (20:44)
--- NOTE | 2018-03-02 22:52 | CT ---
NONCONTRAST CT HEAD: 03/02/2018 HISTORY: Hit head on floor after a fall. Injury after fall. FINDINGS: There is decreased attenuation in the periventricular white matter, which is nonspecific but likely r eflective of moderate chronic small vessel ischemic changes. There is suggestion of a very small, is odense, subdural collection along the inner table of the right lateral parietal bone, with the greate st dimension of 3 mm. There is no significant mass effect, and no evidence of shift of the midline s tructures. No additional intraparenchymal or extraaxial hemorrhage is seen. There is no evidence of an acute cortical infarction present. There is mild cerebral volume loss. T he ventricular system is normal in size, shape, and position for the degree of sulcal atrophy. IMPRESSION: 1. Suggestion of a very tiny, isodense, subdural hematoma along the right parietal convexity, with t he greatest transverse dimension of 3 mm. There is no significant midline shift or mass effect. 2. Chronic small vessel ischemic changes and cerebral volume loss. The above findings were discussed with Devyn, the nurse in charge of the patient's hospital care, on 03/02/2018, at 2241 hours. CODE CR POS: [facility]
[2018-03-03] MEDS: Metoprolol Tartrate 25 MG TAB PO SCH ×2 (08:38→22:27)
[2018-03-03] MEDS: Furosemide 20 MG TAB PO SCH (08:39)
--- NOTE | 2018-03-03 11:18 | RAD ---
LEFT HIP 1 VIEW: HISTORY: Fall. COMPARISON: Hip radiographs 02/28/18. FINDINGS: There are 2 partially threaded cannulated screws of the left femoral neck. No moderate degenerative disease of the pubic symphysis. Bilateral iliac stents are present. IMPRESSION: Satisfactory appearance of the 2 partially threaded cannulated screws to the left femoral neck. POS: [facility]
[2018-03-03 11:31] LABS: Bilirubin Negative (Negative); Blood, Urine Moderate (Negative); Clarity CLEAR (Clear); Glucose, Urine (Dipstick) Negative (Negative); Leukocyte Small (Negative); Nitrite Negative (Negative); Protein, Urine (Dipstick) Negative (Neg-Trace); Specific Gravity, Urine 1.011 (1.002-1.036); pH, Urine 5.5 (5.0-9.0)
[2018-03-03 11:35] LABS: Bacteria/HPF None Seen HPF (None Seen); Hyaline Casts/LPF 0-3 HYALINE CAST LPF (0-3 Hyaline); Pathc Cast-AUWi Flag 0.29 (0-2.49); Squamous Epithelial None Seen HPF (0-3); WBC/HPF 0-3 HPF (0-3)
--- NOTE | 2018-03-03 11:48 | PRG ---
DATE OF SERVICE: 03/03/2018 HISTORY OF PRESENT ILLNESS: Ms. Joseph is an 82-year-old woman who is post-injury day #5, status post ground level fall. She is postoperative day #3 today status post percutaneous screw fixation of left femoral neck fracture. The patient fell down last night from a ground level position and may have s truck her head. CT scan of the brain was obtained which revealed small right convexity subdural afsaneh noble with no mass effects. This morning, the patient is awake, alert and less impulsive. She is carlos erating breakfast little better today than yesterday. She is more interactive with my examination th is morning. She reports adequate pain control. She has been off dopamine since yesterday. Her bloo d pressure has remained stable. Her atrial fibrillation is rate controlled currently. The patient d enies any dyspnea, syncope or chest pain. PHYSICAL EXAMINATION: VITAL SIGNS: Currently includes blood pressure 139/72, pulse is 81 and irregular, respiratory rate i s 17, temperature is 98.3 degrees Fahrenheit, oxygen saturation is 97% on 2 liters by nasal cannula o xygen. HEENT: Examination reveals pupils equal, round, reactive to light and accommodation. Extraocular mu scles are intact bilaterally. She has no sclerae icterus present. She has a superficial abrasion of the right temporal forehead. No scalp hematoma is present. HEART: Reveals irregular rate and rhythm. LUNGS: Reveals scattered rhonchi. Breathing is regular and unlabored. ABDOMEN: Soft, nontender, nondistended. Bowel sounds in all four quadrants appear normoactive. EXTREMITIES: Reveals 2+ radial and pedal pulses bilaterally. She has no ankle edema present. NEUROLOGIC: Examination reveals no focal deficits present. IMAGING DATA: X-ray of the pelvis this morning reveals no acute injuries. The left hip fixation rem ains intact. IMPRESSION: 1. Postoperative day #3, status post percutaneous screw fixation of left femoral neck fracture. 2. Acute metabolic encephalopathy. 3. Resolving acute congestive heart failure. 4. Stable dilated cardiomyopathy. PLAN: 1. I have encouraged the patient to continue to participate with physical and occupational therapy i n anticipation for transfer to inpatient rehabilitation. 2. We will add Ensure t.i.d. as to increase the patient's protein supplementation as she really appe ars cachectic suggestive of chronic malnutrition. Above findings and plan discussed with the patient who indicates understanding of information given. I have answered her questions.
--- NOTE | 2018-03-03 17:51 | PDOC.CTH ---
<Abigail Chavez - Last Filed: 03/03/18 17:48> Cardiology Progress Note - Subjective The pt seen and examined. No cardiac complaints. S/p fall and CT Brain on showed small subdual hematoma to Rt parietal convexity. she is very confused. - Objective Vital Signs Temp Pulse Resp BP BP Pulse Ox 03/03/18 15:21 98.7 F 98 18 131/64 94 L 03/03/18 14:41 154/67 H 03/03/18 14:13 80 18 96 03/03/18 11:38 98.6 F 79 18 127/67 96 03/03/18 11:12 70 18 97 03/03/18 08:41 98.3 F 81 17 139/72 97 Admit Weight 130 lb 1.164 oz Weight 97 lb 03/02/18 03/03/18 03/04/18 06:59 06:59 06:59 Intake Total 480 1080 Output Total 550 1360 Balance -70 -280 - Physical Examination General/Neuro: other: (oriented to self only) Neck: carotid US brisk Lungs: CTA (diminished at bases) Heart: other: (irregular) Abdomen: soft Extremities: other: (no edema; diminished pulsese to BLE) - Telemetry Telemetry Rhythm: Afib 80s - Labs Result Diagrams: 03/02/18 05:17 03/02/18 05:17 Troponin/CKMB CK-MB (CK-2) 2.5 ng/mL (0-6.6) 02/27/18 12:26 Troponin I 0.026 ng/mL (< 0.028) 02/27/18 12:26 - Assessment/Plan 1. Persistent AFib c/ RVR- Rate well controlled with Metoprolol 2.5mg BID. digoxin was stopped due to elevated dig level to 2.84. 2. S/P fall with L hip fracture, s/p femoral neck perc screw fixation on 2017 - followed by ortho/trauma service 3. Acute on Chronic systolic HF c/ nonischemic CM - Echo on 02/27/2018 revealed EF 15%-20% (EF < 35% since 2012). Stable with Lasix. Start Lisinopril 2.5mg daily from tonight. Appropriate for ICD insertion; however, patient has not made final decision Dopamine is off now. 4. COPD - stable on 2L via NC 5. CKD Stage II - stable. 6. PVD with hx of stent placement to Bilat. fem. Decreased pulses to BLE. Possible Atrial Doppler study as outpt? 7. Hyperlipidemia - on Statin 8. Acute metabolic encephalopathy - sitter at bedside MAR reviewed Review of Systems - Review of Systems Constitutional: reports: see HPI EENTM: reports: no symptoms reported, see HPI Respiratory: reports: no symptoms reported Cardiac (ROS): reports: no symptoms reported ABD/GI: reports: no symptoms reported : reports: no symptoms reported <Yolanda Sun - Last Filed: 03/03/18 20:18> Cardiology Progress Note - Objective Vital Signs Temp Pulse Resp BP BP Pulse Ox 03/03/18 18:15 78 18 98 03/03/18 15:21 98.7 F 98 18 131/64 94 L 03/03/18 14:41 154/67 H 03/03/18 14:13 80 18 96 03/03/18 11:38 98.6 F 79 18 127/67 96 03/03/18 11:12 70 18 97 03/03/18 08:41 98.3 F 81 17 139/72 97 Admit Weight 130 lb 1.164 oz Weight 97 lb 03/02/18 03/03/18 03/04/18 06:59 06:59 06:59 Intake Total 480 1080 960 Output Total 550 1360 900 Balance -70 -280 60 - Labs Result Diagrams: 03/02/18 05:17 03/02/18 05:17 Troponin/CKMB CK-MB (CK-2) 2.5 ng/mL (0-6.6) 02/27/18 12:26 Troponin I 0.026 ng/mL (< 0.028) 02/27/18 12:26 - Assessment/Plan Pt. seen and eval. by me. 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 She is confused and not sleeping. Sheis hallucinating. She may need Haldol or some other antipsychotic medication. Chest: few basilar rales. RRR. Continue supportive care.
[2018-03-03] MEDS ORDERED: Albuterol Sulfate 2.5 mg/3 ml Neb NEB PRN (20:36)
[2018-03-03 21:00] LABS: Actual Bicarbonate (HCO3a) 34.4 mEq/L (22-26); Base Excess (BEa) 9.2 mEq/L (0 (+/-) 2.5); O2 Tension (PaO2) 57.4 mmHg (80.0-100.0); pH, Arterial 7.46 (7.35-7.45)
[2018-03-03 21:01] LABS: Hematocrit-ABG 41.2 % (36.0-47.0); Hemoglobin (Hb) 12.2 g/dL (12.0-16.0)
[2018-03-03 21:02] LABS: Analyzer IN Cardio ER; Calcium, Ionized 1.1 mmol/L (1.12-1.30); Puncture Site LRA
[2018-03-03] MEDS: AcetaZOLAMIDE 250 MG TAB PO SCH (22:26)
[2018-03-03] MEDS: Atorvastatin Calcium 10 MG TAB PO SCH (22:28)
[2018-03-03] MEDS: Acetaminophen 500 MG TAB PO PRN (22:29)
--- NOTE | 2018-03-04 00:06 | PRG ---
DATE OF SERVICE: 03/03/2018 SUBJECTIVE: This is an 82-year-old female, hospital day #5, status post ground level fall. She is p ostop day #3, status post hip fracture repair. The patient has had issues throughout her hospitaliza tion with agitation and confusion. This seems to be improving with improvement in her medical comorb idities. Upon my evaluation this evening, she vocalized no complaints. OBJECTIVE: VITAL SIGNS: Reviewed and stable. The patient has been afebrile. GENERAL: Resting in bed in no acute distress. PULMONARY: Breathing is nonlabored. GASTROINTESTINAL: Abdomen is soft, nontender, nondistended. NEUROLOGIC: No focal deficit is noted. LABORATORY DATA: pH of 7.46, pCO2 of 50, pO2 of 57.4, bicarbonate 34.4. ASSESSMENT AND PLAN: Assessment as documented in daily progress note. Of note, the patient's chemis try was reviewed from 03/02/2018. It was noted that the patient did have an elevated carbon dioxide level at that time. Given her daily Lasix, an ABG was ordered this evening. Results indicate metabo lic alkalosis with respiratory compensation. Plan to hold Lasix for now. Start Diamox 500 mg t.i.d. The patient reportedly did not sleep last night per family at bedside and RN report. We will add S eroquel 25 mg p.o. at bedtime. Otherwise, continue care as ordered. Continue to monitor. Assessment and plan was discussed with Dr. Lord over the phone.
[2018-03-04 05:36] LABS: Anion Gap 11 mmol/L (10-20); BUN (Urea Nitrogen) 24 mg/dL (9.8-20.1); Calc. Creatinine Clearance 40 mL/min (70-130); Calcium 8.6 mg/dL (7.8-10.44); Carbon Dioxide 34 mmol/L (23-31); Chloride 97 mmol/L (98-107); Estimated GFR-MDRD 73; Glucose 80 mg/dL (83-110); Phosphorus 3.2 mg/dL (2.3-4.7); Potassium 3.5 mmol/L (3.5-5.1); Sodium 138 mmol/L (136-145)
[2018-03-04] MEDS: Budesonide 0.5 MG/2 ML NEB NEB SCH (07:01)
[2018-03-04] MEDS ORDERED: Potassium Chloride 20 MEQ TAB PO SCH (07:30)
[2018-03-04] MEDS: AcetaZOLAMIDE 250 MG TAB PO SCH ×3 (09:40→20:40)
[2018-03-04] MEDS: Metoprolol Tartrate 25 MG TAB PO SCH ×2 (09:40→20:39)
[2018-03-04] MEDS: Senokot S 8.6-50 MG TAB PO SCH ×2 (10:19→20:39)
[2018-03-04] MEDS: Polyethylene Glycol 3350 17 GM Packet PO SCH (10:19)
[2018-03-04] MEDS: Acetaminophen 500 MG TAB PO PRN ×2 (10:20→17:29)
[2018-03-04] MEDS ORDERED: Melatonin 3 MG TAB PO PRN ×2 (10:21→15:27)
--- NOTE | 2018-03-04 11:24 | PDOC.CTH ---
Cardiology Progress Note - Objective Vital Signs Temp Pulse Pulse Pulse Resp BP BP 03/04/18 10:28 92 73 122/63 122/60 03/04/18 09:32 98.9 F 95 16 03/04/18 07:03 72 18 03/04/18 07:01 72 18 03/04/18 00:00 98.3 F 91 28 H BP Pulse Ox 03/04/18 10:28 03/04/18 09:32 131/58 L 95 03/04/18 07:03 89 L 03/04/18 07:01 89 L 03/04/18 00:00 142/68 H 96 Admit Weight 130 lb 1.164 oz Weight 98 lb 11.2 oz 03/03/18 03/04/18 03/05/18 06:59 06:59 06:59 Intake Total 1080 1510 Output Total 1360 2000 Balance -280 -490 - Physical Examination General/Neuro: other: (confused but not as bad as yesterday.) Neck: no JVD present Lungs: other: (bibasilar rales.) Heart: other: (irreg. ) Abdomen: soft - Telemetry Telemetry Rhythm: atrial fib.rate controlle - Labs Result Diagrams: 03/02/18 05:17 03/04/18 04:37 Troponin/CKMB CK-MB (CK-2) 2.5 ng/mL (0-6.6) 02/27/18 12:26 Troponin I 0.026 ng/mL (< 0.028) 02/27/18 12:26 - Assessment/Plan 1. Persistent AFib c/ RVR- Rate well controlled with Metoprolol 2.5mg BID. digoxin was stopped due to elevated dig level to 2.84. 2. S/P fall with L hip fracture, s/p femoral neck perc screw fixation on 2017 - followed by ortho/trauma service 3. Acute on Chronic systolic HF c/ nonischemic CM - Echo on 02/27/2018 revealed EF 15%-20% (EF < 35% since 2012). Stable with Lasix. Start Lisinopril 2.5mg daily. Appropriate for ICD insertion; however, patient has not made final decision Dopamine is off now. 4. COPD - stable on 2L via NC 5. CKD Stage II - stable. 6. PVD with hx of stent placement to Bilat. fem. Decreased pulses to BLE. Possible Atrial Doppler study as outpt? 7. Hyperlipidemia - on Statin 8. Acute metabolic encephalopathy - sitter at bedside MAR reviewed
[2018-03-04] MEDS: Scopolamine 1.5 mg/72 hour Patch TD SCH (12:04)
[2018-03-04] MEDS: Bisacodyl 10 MG SUPP PR SCH (12:04)
--- NOTE | 2018-03-04 15:30 | PRG ---
DATE OF SERVICE: 03/04/2018 SUBJECTIVE: Ms. Joseph is an 82-year-old woman who is post-injury day #6 status post ground level fall with a left hip fracture. She is postoperative day 4 status post percutaneous screw fixation, left femoral neck fracture. She slept well last night according to nursing. She is tolerating more oral intake of food. She is less impulsive today. She participated with physical therapy today. This is a big improvement over yesterday. OBJECTIVE: VITAL SIGNS: Today includes blood pressure 131/58, pulse 72-85 and irregular, respiratory rate is 16 , temperature is 98.9 degrees Fahrenheit, oxygen saturation is 95% on 2 liters by nasal cannula oxyge n. HEENT: Examination reveals pupils equal, round, reactive to light and accommodation. She has no jug ular venous distention noted. HEART: Reveals regular rate and rhythm, no murmurs or gallops auscultated. LUNGS: Clear to auscultation bilaterally. Breathing is regular and nonlabored. ABDOMEN: Soft, nontender, and nondistended. EXTREMITIES: Reveal 2+ radial and pedal pulses bilaterally. No ankle edema is present. NEUROLOGIC: Today reveals no focal deficits present. LABORATORY DATA: Laboratory findings today includes metabolic profile: Sodium 138, potassium 3.5, c hloride is 97, bicarbonate is 34, BUN is 24, creatinine is 0.76, glucose is 80, magnesium 2.0, and ph osphorus 3.2. IMPRESSION: 1. Postoperative day #4, status post percutaneous screw fixation, left femoral neck fracture. 2. Resolving acute metabolic encephalopathy. 3. Acute hypokalemia. 4. Acute contraction metabolic alkalosis. PLAN: 1. Continue with physical and occupational therapy. 2. Correct abnormal electrolytes. 3. Patient will be transferred to general surgical floor. 4. She will be transferred to inpatient rehabilitation once she is 24 hours free from having any bed side sitter. Above findings and plan discussed with the patient and her granddaughter at bedside.
[2018-03-04] MEDS: Atorvastatin Calcium 10 MG TAB PO SCH (20:40)
--- NOTE | 2018-03-05 02:14 | PRG ---
DATE OF SERVICE: 03/04/2018 SUBJECTIVE: Ms. Joseph is an 82-year-old female, hospital day #6, status post ground level fall. She is postoperative day #4, status post hip fracture repair. She has had issues throughout her hospital ization with agitation and confusion. She was started on Seroquel last night. Her granddaughter sta leah that she slept the entire night and all day today. She is now seen on surgical floor. She easil y awakens to name. She is calm at this time and cooperative. OBJECTIVE: VITAL SIGNS: Temperature 97.6, pulse 90, respirations 16, O2 sat 97% room air, blood pressure 129/77 . GENERAL: Elderly female, resting in bed, in no acute distress. PULMONARY: Bilateral breath sounds clear. No respiratory distress. CARDIOVASCULAR: Regular rate and rhythm. Heart sounds normal. ABDOMEN: Soft, nontender, nondistended. NEUROLOGIC: Awakens to voice. GCS 15. Awake, alert, oriented x3. ASSESSMENT: 1. Status post ground level fall. 2. Status post hip fracture, postoperative day #4, status post percutaneous screw fixation. 3. Resolving metabolic encephalopathy. PLAN: 1. Continue with physical and occupational therapy. 2. Monitor electrolytes and correct imbalances. 3. Case management following for discharge planning. Anticipate patient to discharge to rehab in va xt 1 to 2 days. She is awake, alert, oriented and not requiring a bedside sitter at this time.
[2018-03-05] MEDS: Budesonide 0.5 MG/2 ML NEB NEB SCH (06:46)
[2018-03-05 08:03] LABS: Hemoglobin 14.1 g/dL (12.0-16.0); Mean Corpuscular HGB CONC 33.6 g/dL (32.0-36.0); Mean Corpuscular Hemoglobin 35.4 pg (27.0-31.0); Platelet Count 186 thou/uL (130-400); RBC Distribution Width 12.6 % (11.5-14.5); Red Blood Cell (RBC) Count 3.98 mill/uL (4.20-5.40)
[2018-03-05 08:23] LABS: Anion Gap 12 mmol/L (10-20); BUN (Urea Nitrogen) 20 mg/dL (9.8-20.1); Calc. Creatinine Clearance 37 mL/min (70-130); Carbon Dioxide 24 mmol/L (23-31); Chloride 104 mmol/L (98-107); Estimated GFR-MDRD 71; Glucose 92 mg/dL (83-110); Magnesium 1.9 mg/dL (1.6-2.6); Phosphorus 3.7 mg/dL (2.3-4.7); Potassium 3.8 mmol/L (3.5-5.1); Sodium 136 mmol/L (136-145)
[2018-03-05 08:25] LABS: Band 9 % (5-11); Eosinophils 4 % (0-10); Lymphocytes 15 % (21-51); MDiff Complete? YES; Macrocytosis SLIGHT = 6-15 cells (100X) (0-5/hpf); Monocytes 5 % (0-10); Neutrophil 66 % (42-75); PLT Morphology Comment Appears Adequate
[2018-03-05] MEDS: Metoprolol Tartrate 25 MG TAB PO SCH (09:00)
[2018-03-05] MEDS ORDERED: Megestrol Acetate 40 MG TAB PO SCH (09:00)
[2018-03-05] MEDS: AcetaZOLAMIDE 250 MG TAB PO SCH ×2 (09:00→15:34)
[2018-03-05] MEDS: Senokot S 8.6-50 MG TAB PO SCH (09:00)
[2018-03-05] MEDS ORDERED: Lisinopril 2.5 MG TAB PO SCH (09:00)
--- NOTE | 2018-03-05 09:00 | PDOC.CTH ---
Cardiology Progress Note - Subjective The pt seen and examined. No overnight events. No cardiac complaints. Per the pt's grand daughter, the pt slept well last night and could have good amount of breakfast this AM. - Objective Vital Signs Temp Pulse Resp BP Pulse Ox 03/05/18 07:42 98.2 F 97 14 136/80 95 03/05/18 06:45 90 14 03/05/18 04:29 97.9 F 80 16 125/78 96 03/05/18 02:20 73 12 96 03/05/18 00:07 98.0 F 76 18 122/70 97 03/04/18 22:28 90 12 97 Admit Weight 130 lb 1.164 oz Weight 93 lb 8 oz 03/04/18 03/05/18 03/06/18 06:59 06:59 06:59 Intake Total 1510 350 240 Output Total 1999 1999 1100 Balance -876 -2099 -278 - Physical Examination Neck: no JVD present Lungs: other: (diminished at bases) Heart: other: (irregular) Abdomen: soft Extremities: other: (No edema;) - Labs Result Diagrams: 03/05/18 07:49 03/05/18 07:49 Troponin/CKMB CK-MB (CK-2) 2.5 ng/mL (0-6.6) 02/27/18 12:26 Troponin I 0.026 ng/mL (< 0.028) 02/27/18 12:26 - Assessment/Plan 1. Persistent AFib c/ RVR- Rate well controlled with Metoprolol 12.5mg BID. digoxin was stopped due to elevated dig level to 2.84. 2. S/P fall with L hip fracture, s/p femoral neck perc screw fixation on 2017 - followed by ortho/trauma service 3. Acute on Chronic systolic HF c/ nonischemic CM - Echo on 02/27/2018 revealed EF 15%-20% (EF < 35% since 2012). On Diamox. Start Lisinopril 2.5mg daily from today. Appropriate for ICD insertion; however, patient has not made final decision. 4. COPD - stable with RA 5. CKD Stage II - stable. 6. PVD with hx of stent placement to Bilat. fem - Decreased pulses to BLE. Possible Atrial Doppler study as outpt? 7. Hyperlipidemia - on Statin 8. Acute metabolic encephalopathy - improving 9. Ex-smoker MAR reviewed * The procedures of AICD and BiV PM were explained to the pt's granddaughter today. Review of Systems - Review of Systems Constitutional: reports: no symptoms reported EENTM: reports: no symptoms reported Respiratory: reports: no symptoms reported Cardiac (ROS): reports: no symptoms reported
[2018-03-05] MEDS: Bisacodyl 10 MG SUPP PR SCH (09:02)
[2018-03-05 13:22] VITALS: BMI 17.1
[2018-03-05] MEDS: Polyethylene Glycol 3350 17 GM Packet PO SCH (15:37)
[2018-03-05 16:06] VITALS: BP 133/76; TEMP 98.1
--- NOTE | 2018-03-05 18:08 | CT ---
CT BRAIN WITHOUT CONTRAST: 03/05/18 HISTORY: Subdural hematoma followup. FINDINGS: Comparison made with the exam of 03/02/18. There is interval decrease in the size of the tiny subdural hematoma along the right parietal convexi ty noted on the previous study. A tiny amount of residual right subdural hematoma is seen. Changes of chronic small vessel ischemic disease are again seen. The ventricular size is stable and the basilar cisterns patent. No midline shift, acute infarct or new radiolucent intracranial hemorrhage are iden tified. IMPRESSION: Interval improvement with minimal residual tiny right sided subdural hematoma since 03/02/18. POS: [facility]
--- NOTE | 2018-03-06 02:22 | DIS ---
DATE OF ADMISSION: 02/26/2018 DATE OF DISCHARGE: 03/05/2018 ADMITTING PHYSICIAN: Dr. Back. DISCHARGING PHYSICIAN: Dr. Lord. ADMISSION DIAGNOSES: 1. Status post ground level fall. 2. Left femoral neck fracture. 3. History of chronic obstructive pulmonary disease, present on admission. 4. History of coronary artery disease, present on admission. 5. History of atrial fibrillation, present on admission. 6. Type 2 diabetes, present on admission. DISCHARGE DIAGNOSES: 1. Status post ground level fall. 2. Left femoral neck fracture. 3. History of chronic obstructive pulmonary disease, present on admission. 4. History of coronary artery disease, present on admission. 5. History of atrial fibrillation, present on admission. 6. Type 2 diabetes, present on admission. 7. Acute congestive heart failure exacerbation. 8. Atrial fibrillation with rapid ventricular response. 9. Acute chronic obstructive pulmonary disease exacerbation. 10. Small subdural hematoma. 11. Acute kidney injury, resolved. PROCEDURES PERFORMED: Percutaneous screw fixation of left femoral neck fracture. HOSPITAL COURSE: Ms. Joseph is an 82-year-old female who was transferred to [facility] from [facility] with a left hip fracture that she sustained after stepping in a hole while walking and fallin g on her left hip. Prior to surgery, the patient developed dizziness, shortness of breath, and nause a. She was also noted to be in atrial fibrillation with a rapid ventricular rate. Labs revealed an elevated BNP of 664.1. She had an echocardiogram which revealed an ejection fraction estimated at 15 %-20%. She was transferred to telemetry for further cardiac monitoring. The patient was able to be successfully rate controlled and her heart failure resolved with diuretics. The patient was able to be transferred back to the surgical floor for the remainder of her stay. Also, [facility] resulting in a small right convexity subdural hematoma. Repeat C T scan on the day of discharge showed this had almost entirely resolved. The patient was initially r eluctant and unwilling to get up and worked with physical and occupational therapy. However, she did eventually start to mobilize and was able to be discharged to rehab in stable condition on 8. DISCHARGE MEDICATIONS: Include all of her inpatient medications, please see electronic medical recor ds for details. ACTIVITY INSTRUCTIONS: Orthopedic limitations include weightbearing as tolerated. NOURISHMENT INSTRUCTIONS: Regular diet with supplemental Glucerna shakes t.i.d. THERAPY INSTRUCTIONS: Occupational and physical therapy. REFERRALS AND FOLLOWUP: The patient instructed to follow up with Angely Armendariz in [facility] after discharge. The patient also instructed to follow up with Dr. Kavon Richardson in 14 day s. The patient instructed to follow up with Dr. Kang Lundy in Neurosurgery with repeat CT scan in 4 weeks. The patient instructed to follow up with Dr. Mario Sams and Cardiology in 7 days. [facility] to [facility] up with Dr. Cameron Warner, her primary care provider in 7 days. This patient was seen and examined along with Dr. Lord who agrees with this discharge plan.
== END 2018-03-05 19:40 | DRG 956 ==
LOC: ERS 19:28 → SURG A 20:48 → 2NO 02-27 13:55 → SURG A 03-04 17:58
PROVIDERS: ADMIT Surgery; ATTEND Surgery
PROC: 0QS604Z Reposition Right Upper Femur with Internal Fixation Device, Open Approach (ICD-10-PCS; principal; 2018-02-28)
DX: S72.001A Fracture of unspecified part of neck of right femur, initial encounter for closed fracture (principal); S06.5X9A Traumatic subdural hemorrhage with loss of consciousness of unspecified duration, initial encounter; N17.0 Acute kidney failure with tubular necrosis; I50.23 Acute on chronic systolic (congestive) heart failure; G93.41 Metabolic encephalopathy; E87.3 Alkalosis; E46 Unspecified protein-calorie malnutrition; E83.39 Other disorders of phosphorus metabolism; E87.5 Hyperkalemia; I48.91 Unspecified atrial fibrillation; E83.42 Hypomagnesemia; J44.1 Chronic obstructive pulmonary disease with (acute) exacerbation; I13.0 Hypertensive heart and chronic kidney disease with heart failure and stage 1 through stage 4 chronic kidney disease, or unspecified chronic kidney disease; M19.90 Unspecified osteoarthritis, unspecified site; I49.3 Ventricular premature depolarization; N18.2 Chronic kidney disease, stage 2 (mild); W18.30XA Fall on same level, unspecified, initial encounter; Y93.01 Activity, walking, marching and hiking; Z88.5 Allergy status to narcotic agent; Z88.8 Allergy status to other drugs, medicaments and biological substances; Z79.899 Other long term (current) drug therapy; Z79.01 Long term (current) use of anticoagulants; Z79.52 Long term (current) use of systemic steroids; M81.0 Age-related osteoporosis without current pathological fracture; Z87.891 Personal history of nicotine dependence; I25.5 Ischemic cardiomyopathy; Z79.2 Long term (current) use of antibiotics
CPT/HCPCS: 36415; 36416; 70450; 71045; 74018; 76001; 80048; 80162; 81003; 81015; 82553; 82805; 83735; 83880; 84100; 84484; 85025; 93005; 93010; 93306; 94640; C1713; C1769; G0390; G8978-GP-CL; G8979-GP-CJ; G8987-GO-CK; G8988-GO-CI; J0131; J0282; J0670; J1160; J1265; J1815; J1940; J2270; J2405; J2550; J7050; J7070; J7620; J7626; Q0162; S0179

== ENCOUNTER 2018-03-24 09:33 | Outpatient (CLI) | payer MEDICARE, MEDICAID ==
--- NOTE | 2018-03-24 10:25 | CT ---
CT HEAD WITHOUT CONTRAST: Technique: Multiple axial tomograms were obtained through the head without IV enhancement. Indications: Follow up subdural hematoma. Comparison: 03-05-18, 03-02-18 FINDINGS: Ventricles are normal size and position. Chronic ischemic white matter changes are again noted, stabl e. No acute mass or infarct. No acute hemorrhage. No evidence for residual subdural seen along the right convexity today. IMPRESSION: 1. No evidence of residual subdural hematoma. 2. Chronic changes appear stable. POS: [facility]
== END 2018-03-24 09:34 | disposition home or self-care (01) ==
LOC: TBSIIMAG 09:33
PROVIDERS: ATTEND Surgery
DX: S06.5X0A Traumatic subdural hemorrhage without loss of consciousness, initial encounter (principal)
CPT/HCPCS: 70450

== ENCOUNTER 2019-02-01 21:13 | Inpatient (IN) | payer MEDICARE, MEDICAID ==
[2019-02-02] MEDS ORDERED: Ondansetron ODT 4 MG TAB PO PRN (00:12)
[2019-02-02] MEDS ORDERED: Acetaminophen 325 MG TAB PO PRN (00:53)
[2019-02-02] MEDS ORDERED: Ondansetron PF 4 MG/2 ML Vial IVP PRN (00:53)
[2019-02-02] MEDS ORDERED: Ondansetron ODT 4 MG TAB SL PRN (00:53)
[2019-02-02] MEDS ORDERED: Insulin Regular 300 UNITS/3 ML VIAL SC PRN (01:11)
[2019-02-02] MEDS ORDERED: Dextrose 50% Abboject 50 ML SYRINGE SLOW IVP PRN (01:11)
[2019-02-02] MEDS ORDERED: Dextrose 5% in Water 1,000 ML IV PRN (01:11)
[2019-02-02 01:20] VITALS: BMI 19.5
[2019-02-02] MEDS: Sodium Chloride 0.9% 1,000 ML IV SCH ×2 (01:41→20:06)
[2019-02-02 01:58] LABS: #Basophils 0.1 thou/uL (0.0-0.2); #Lymphocytes 0.8 thou/uL (1.20-3.40); #Monocytes 0.2 thou/uL (0.11-0.59); %Basophils 0.7 % (0.0-1.0); %Eosinophils 0.1 % (0.0-10.0); %Lymphocytes 10.4 % (21.0-51.0); %Monocytes 2.2 % (0.0-10.0); %Neutrophils 86.6 % (42.0-75.0); Hemoglobin 12.4 g/dL (12.0-16.0); Mean Corpuscular HGB CONC 33.4 g/dL (32.0-36.0); Mean Corpuscular Hemoglobin 33.9 pg (27.0-31.0); Mean Platelet Volume 7.2 fL (7.4-10.4); Platelet Count 175 thou/uL (130-400); RBC Distribution Width 11.7 % (11.5-14.5); Red Blood Cell (RBC) Count 3.66 mill/uL (4.20-5.40)
[2019-02-02 02:05] LABS: Bilirubin Negative (Negative); Blood, Urine Negative (Negative); Clarity CLEAR (Clear); Glucose, Urine (Dipstick) Negative (Negative); Leukocyte Negative (Negative); Nitrite Negative (Negative); Protein, Urine (Dipstick) Negative (Neg-Trace); Specific Gravity, Urine 1.012 (1.002-1.036); Urobilinogen 0.2 mg/dL (0.2-1.0)
[2019-02-02 02:07] LABS: Bacteria/HPF None Seen HPF (None Seen); Hyaline Casts/LPF 0-3 HYALINE CAST LPF (0-3 Hyaline); Pathc Cast-AUWi Flag 0.13 (0-2.49); RBC/HPF 0-3 HPF (0-3); Squamous Epithelial None Seen HPF (0-3); WBC/HPF None Seen HPF (0-3)
[2019-02-02 02:14] LABS: Urine Culture Reflex No No
[2019-02-02 02:22] LABS: Anion Gap 16 mmol/L (10-20); BUN (Urea Nitrogen) 46 mg/dL (9.8-20.1); Calc. Creatinine Clearance 25 mL/min (70-130); Calcium 8.9 mg/dL (7.8-10.44); Carbon Dioxide 26 mmol/L (23-31); Chloride 97 mmol/L (98-107); Estimated GFR-MDRD 39; Glucose 167 mg/dL (83-110); Potassium 4.4 mmol/L (3.5-5.1); Sodium 135 mmol/L (136-145)
[2019-02-02 02:23] LABS: Troponin I 0.011 ng/mL (< 0.028)
[2019-02-02] MEDS: Insulin Regular 300 UNITS/3 ML VIAL SC PRN ×2 (05:41→18:02)
[2019-02-02 06:00] LABS: Troponin I 0.014 ng/mL (< 0.028)
--- NOTE | 2019-02-02 07:15 | HP ---
CHIEF COMPLAINT: Shortness of breath and weakness. HISTORY OF PRESENT ILLNESS: Ms. Joseph is an 83-year-old woman with a background history of COPD, on home oxygen; CHF, status post AICD placement. She presents today complaining of increasing shortness of breath and overall weakness. The patient states she was recently treated with antibiotics for upper respiratory tract infection. The patient states she has continued with a cough that is productive for yellowish sputum. She presented to the ER on 01/29 after a fall down the stairs. She denies any head injury. She sustained a skin tear to the right forearm. The patient underwent x-rays, which showed no fractures or acute abnormalities. The patient states she did not experience any associated chest pain or lightheadedness at the time of the fall. She did not experience a presyncopal or syncopal episode. She reports a mechanical fall. She has, however, felt generally weak and now has began feeling lightheaded. She has had minimal oral intake for the last several days. She presents also with increased shortness of breath. The patient admits to using her home oxygen intermittently. She states it bothers her to wear the mask, therefore, she only uses the oxygen whenever she feels especially short of breath. She last underwent an echocardiogram in 02/2018, at which time she was noted to have an EF of 15% to 20%. There was mild dilation of the left atrium, moderately enlarged right atrium and right ventricle. Moderate mitral regurgitation present. Mild aortic regurgitation present. [id number] tricuspid regurgitation. Right ventricular systolic pressure elevated and IVC dilation. In the ED, the patient has undergone a chest x-ray which shows cardiomegaly and chronic changes, but no acute findings. She has undergone laboratory studies, which were notable for an elevated troponin of 0.042, the one done in 02/2018 was normal at 0.026. She is therefore, being admitted for chest pain rule out. The patient, however, denies experiencing any chest pain. REVIEW OF SYSTEMS: The patient denies having any fevers, but states she feels hot at times. Denies having any sweats. No headaches or dizziness, but does report lightheadedness mainly when exerting herself and feels generally weak. No chest pain or palpitations. Has had increasing shortness of breath. No nausea or vomiting. Has a decreased appetite. No abdominal pain. Has been experiencing constipation, which is chronic for her, but worse in recent days, which she attributed to decreased oral intake. Denies any abdominal distention. She has been passing wind. No urinary symptoms. All other review of systems are negative. ALLERGIES: HYDROCODONE AND TRAMADOL. CURRENT MEDICATIONS: 1. Furosemide. 2. Pravastatin. 3. Glipizide. 4. Eliquis. 5. Spironolactone. 6. Metoprolol. 7. Pantoprazole. 8. Budesonide. 9. Albuterol. 10. Ferrous sulfate. 11. Calcium. 12. Vitamin .. 13. Acetaminophen/codeine. 14. Keflex. PAST MEDICAL HISTORY: 1. Osteoporosis. 2. Type 2 diabetes. 3. COPD, emphysema. 4. Atrial fibrillation. 5. Previous stent placement in bilateral legs. 6. Hypertension. 7. Peripheral vascular disease, claudication. 8. CAD. SOCIAL HISTORY: The patient states she lives with her son. She is a previous smoker. Denies any alcohol use. Denies any illicit drug use. PHYSICAL EXAMINATION: GENERAL: The patient appears thin, well developed, and in no acute distress. VITAL SIGNS: Temperature 99.1, pulse 107, blood pressure 122/81, respirations 20, and O2 saturation 96% on 2 L of oxygen. HEENT: Normocephalic and atraumatic. Pupils are equal, round, and reactive to light. Sclerae without icterus. Oropharynx is clear. NECK: Supple. LUNGS: Notable for expiratory wheezes. CARDIAC: S1, S2. ABDOMEN: Soft, nontender, and nondistended. No guarding or rigidity. No renal angle tenderness. EXTREMITIES: Pallor, chronic. LABORATORY DATA: White blood count 9.7, hemoglobin 13.3, hematocrit 39.3, and platelets 186. Sodium 133, potassium 5.1, BUN 49, creatinine 1.47, and GFR 34. Total bilirubin 0.8, AST 26, ALT 14, alkaline phosphatase 43, CK 122, and CK-MB 1.6. Troponin 0.042, second troponin 0.026. BNP 192.2, albumin 4.0. IMAGING DATA: As mentioned above in HPI. IMPRESSION AND PLAN: Ms. Joseph is an 83-year-old woman who is being admitted for management of the following; 1. Shortness of breath. Could be a combination of progressive congestive heart failure and exacerbation of chronic obstructive pulmonary disease. The patient has a mild temperature. Recently treated with antibiotics as an outpatient. White cell count normal. Chest x-ray without any evidence of pneumonia. for lower respiratory tract infection. Echo requested. BNP mildly elevated. Consult placed to Cardiology. 2. Diabetes mellitus. Resume home medications and initiate insulin sliding scale. Monitor glucose. 3. Hypertension. Resume home medications. Monitor blood pressure. 4. Weakness. The patient will require PT, OT evaluation. Ambulate with assistance. 5. Constipation. Resume MiraLAX and senna. 6. Fever. Rule out other source of infection. Urinalysis requested. Sputum culture also requested. 7. Gastrointestinal prophylaxis. 8. Venous thromboembolism prophylaxis. 9. Full code status. 10. Her surrogate decision maker is her granddaughter, Marj Joseph. ADDENDUM: DATE AND TIME OF ADDENDUM: January 31 at 7:18 a.m. PHYSICAL EXAMINATION: SKIN: Uniformly dry throughout. HEENT: Oral mucosa is significantly dry. Lips are dry and scaling. Findings not included on the original documented physical exam, notable for volume depletion. Job ID: [id number]
[2019-02-02] MEDS ORDERED: Famotidine/PF 20 mg/2ml Vial SLOW IVP SCH (09:00)
[2019-02-02] MEDS: Senokot S 8.6-50 MG TAB PO SCH ×2 (10:12→20:22)
[2019-02-02] MEDS: Metoprolol Tartrate 25 MG TAB PO SCH ×2 (10:12→20:22)
[2019-02-02] MEDS ORDERED: Sodium Bicarb 50 MEQ/50 ML Abboject 8.4% SYRINGE ONE (11:11)
[2019-02-02] MEDS ORDERED: Calcium Chloride 1 GM/10 ML Abboject SYRINGE ONE (11:11)
[2019-02-02] MEDS ORDERED: EPINEPHrine 1 MG/10 ML Abboject SYRINGE ONE (11:11)
--- NOTE | 2019-02-02 15:40 | CON ---
DATE OF CONSULTATION: 02/02/2019 REASON FOR CONSULTATION: AFib with RVR. HISTORY OF PRESENT ILLNESS: Ms. Joseph is a pleasant 83-year-old white female, who comes to the hospital for shortness of breath. She was seen in the ER, admitted for chest pain rule out. However, she never did really have any chest pain. She only had shortness of breath. She has persistent atrial fibrillation and she has been mostly rate controlled during this admission. She is ruled out with 3 negative troponins. However, monitoring on the property assessment monitor showed her heart rate has been in the 120s to 140s. Currently, in the 120s with some wide-complex rhythms. She has an AICD in place for what appears to be a nonischemic cardiomyopathy with an EF about 20%. Currently, Ms. Joseph feels better now that her heart is a little bit lower as well. PAST MEDICAL HISTORY: 1. Osteoporosis. 2. Type 2 diabetes. 3. COPD with emphysema. 4. Chronic atrial fibrillation. 5. Bilateral leg stents in the recent past. 6. Hypertension. 7. Peripheral vascular disease with claudication. 8. CAD. OUTPATIENT MEDICATIONS: Include: 1. Lasix 20 mg a day. 2. Baclofen b.i.d. 3. Lisinopril 2.5 mg a day. 4. Metoprolol tartrate 12.5 mg b.i.d. 5. Pantoprazole 40 mg a day. 6. Pravastatin 40 mg q.h.s. 7. Spironolactone 25 mg q.a.m. 8. Glipizide 5 mg a day. 9. Incruse Ellipta. 10. Tylenol No. 3. 11. Albuterol p.r.n. 12. Cephalexin 500 mg p.o. t.i.d. ALLERGIES: 1. HYDROCODONE. 2. ZANAFLEX. 3. TRAMADOL. SOCIAL HISTORY: Previous smoker. No alcohol or drugs. FAMILY HISTORY: Noncontributory. REVIEW OF SYSTEMS: A 12-point review of systems was done and negative unless stated in the history of present illness. PHYSICAL EXAMINATION: VITAL SIGNS: Temperature 98.8, pulse 120, respiratory rate 16, saturation 98% on 3 L nasal cannula, and blood pressure 105/61. GENERAL: Awake, alert, and oriented x3, in no distress. HEENT: Normocephalic, atraumatic. NECK: Supple. LUNGS: Reduced breath sounds bilaterally. CARDIOVASCULAR: S1 and S2. Irregularly irregular heart rate in the 110s to 120s. ABDOMEN: Soft. Positive bowel sounds. EXTREMITIES: No edema. SKIN: Warm and dry. LABORATORY DATA: Laboratory work was reviewed. Sodium 135, potassium 4.4, chloride 97, carbon dioxide 26, anion gap of 16, BUN of 46, creatinine 1.3, GFR of 39, glucose of 167. Troponin is negative x3. BNP was 185. ASSESSMENT: 1. Atrial fibrillation with rapid ventricular response. Chronic atrial fibrillation, currently not rate controlled. 2. Chronic dilated cardiomyopathy with ejection fraction at about 20%. 3. Status post automatic implantable cardioverter-defibrillator. PLAN: 1. We will improve rate control with adding very low dose digoxin. She has been taken off this in the past given higher than normal levels, so we will have to check her levels tomorrow and see where she has that. 2. Otherwise, currently her blood pressure is borderline low, so we are limited as to what else we can use. She may need some amiodarone; however, she has significant lung history as well, so this would not be the most ideal drug for her. 3. We will interrogate ICD and make sure there is no VT. 4. Dr. Sams, her primary clod puller, will follow up in the morning. Job ID: [id number]
[2019-02-02] MEDS: Amiodarone HCl 450 MG in Dextrose 5% in Water 250 ML IVPB SCH ×2 (18:44→18:58)
--- NOTE | 2019-02-02 18:50 | PRG ---
DATE OF SERVICE: 02/02/2019 SUBJECTIVE: Ms. Joseph is a pleasant 83-year-old female with past medical history significant for chronic atrial fibrillation, dilated cardiomyopathy with last EF estimated at 15% to 20%, chronic obstructive pulmonary disease, and hypertension, who presented to the hospital with a complaint of worsening shortness of breath and cough over the past week. She did also suffer a fall last as well. This morning, the patient states that her cough and breathing have both improved. She denies any chest pain. Per telemetry, her ventricular rates have remained significantly elevated with rates 120s to 160s. The patient denies any chest pain or palpitations at this point. She denies any nausea or vomiting. OBJECTIVE: VITAL SIGNS: Blood pressure 115/58, pulse 120s, O2 saturation is 98 % on 3 L O2 via nasal cannula. GENERAL: This is a thin elderly woman, resting comfortably in bed, in no acute distress. NECK: No carotid bruit. No lymphadenopathy. Trachea is midline. No obvious JVD. CV: S1 and S2. Irregularly irregular. Tachycardic. No appreciable murmurs. LUNGS: Regular respiratory rate and pattern. Occasional rhonchi, no wheezes heard. No crackles. ABDOMEN: Positive bowel sounds. Soft and nontender. EXTREMITIES: No edema. Extremities appear warm and well perfused. LABORATORY DATA: White blood cell count is 8, hemoglobin is 12.4, MCV 102, sodium 135, potassium 4.4, anion gap 16, BUN 46, creatinine 1.31. BNP is 185. Troponin 0.026, 0.011, and 0.014 respectively. UA is negative. ASSESSMENT: 1. Atrial fibrillation, chronic, now with rapid ventricular response. CHADS- VASc score equals 7. 2. Dilated cardiomyopathy. Last EF estimated at 15% to 20% status post ICD. 3. Acute chronic obstructive pulmonary disease exacerbation, improving. 4. History of falls, most recent one week ago. 5. Peripheral vascular disease, status post stents. 6. Type 2 diabetes mellitus. PLAN: For now, we will continue pulmonary toilet, however, breathing treatments contributing to tachycardia at this point. Cardiology has been consulted. Appreciate input. Per recommendations, we will start digoxin. Her presenting symptoms of cough and shortness of breath have been improving. We will continue to follow Cardiology recommendations. Further recommendations based on hospital course. Given recent fall and acute illness, will consult PT. Care has been discussed with Dr. Dailey, who agrees with the plan. Job ID: [id number] MTDD
[2019-02-03] MEDS: Amiodarone HCl 450 MG in Dextrose 5% in Water 250 ML IVPB SCH (04:24)
[2019-02-03] MEDS ORDERED: Lorazepam 0.5 MG TAB PO SCH (05:00)
[2019-02-03 05:21] LABS: #Lymphocytes 1.3 thou/uL (1.20-3.40); #Monocytes 1.1 thou/uL (0.11-0.59); %Eosinophils 0.1 % (0.0-10.0); %Lymphocytes 7.8 % (21.0-51.0); %Monocytes 6.5 % (0.0-10.0); %Neutrophils 85.6 % (42.0-75.0); Hemoglobin 12.4 g/dL (12.0-16.0); Mean Corpuscular HGB CONC 33.9 g/dL (32.0-36.0); Mean Corpuscular Hemoglobin 34.4 pg (27.0-31.0); Mean Platelet Volume 7.3 fL (7.4-10.4); Platelet Count 232 thou/uL (130-400); Red Blood Cell (RBC) Count 3.61 mill/uL (4.20-5.40); White Blood Cell (WBC) Count 16.3 thou/uL (4.8-10.8)
[2019-02-03 05:40] LABS: Anion Gap 15 mmol/L (10-20); BUN (Urea Nitrogen) 42 mg/dL (9.8-20.1); Calc. Creatinine Clearance 27 mL/min (70-130); Calcium 8.9 mg/dL (7.8-10.44); Carbon Dioxide 26 mmol/L (23-31); Chloride 101 mmol/L (98-107); Estimated GFR-MDRD 42; Glucose 148 mg/dL (83-110); Potassium 4.9 mmol/L (3.5-5.1); Sodium 137 mmol/L (136-145)
[2019-02-03] MEDS ORDERED: Acetaminophen/Codeine 30-300mg Tablet PO PRN (07:33)
[2019-02-03] MEDS ORDERED: Ondansetron PF 4 MG/2 ML Vial IVP PRN (07:35)
[2019-02-03] MEDS ORDERED: Bisacodyl 5 MG TAB PO PRN (07:35)
[2019-02-03] MEDS ORDERED: Loratadine 10 MG TAB PO PRN (07:35)
[2019-02-03] MEDS ORDERED: Nitroglycerin 0.4 MG TAB (25 Tab Bottle) SL PRN (07:35)
[2019-02-03] MEDS ORDERED: Eucerin (Mineral Oil/Petrolatum,White) 30 gm Jar TOP PRN (07:35)
[2019-02-03] MEDS ORDERED: hydrALAZINE 20 MG/ML VIAL SLOW IVP PRN (07:35)
[2019-02-03] MEDS ORDERED: Diabetic Tussin 200 MG/10 ML UDCUP PO PRN (07:35)
[2019-02-03] MEDS ORDERED: Artificial Tears 18 DROP/0.9 ML EA EYE PRN (07:35)
[2019-02-03] MEDS ORDERED: Cepastat Lozenges 1 LOZ PO PRN (07:35)
[2019-02-03] MEDS ORDERED: Loperamide HCl 2 MG CAP PO PRN (07:35)
[2019-02-03] MEDS ORDERED: Sodium Chloride 0.65% Nasal 44 ML BOT EA NARE PRN (07:35)
[2019-02-03 07:42] LABS: Actual Bicarbonate (HCO3a) 24.9 mEq/L (22-28); Analyzer IN Cardio OR; Base Excess (BEa) -2.6 mEq/L (-2.0 to +3.0); CO2 Tension 54.9 mmHg (35.0-45.0); Calcium, Ionized 1.16 mmol/L (1.12-1.30); Carboxyhemoglobin (COHb) 0.5 gm% (0.0-3.0); Hemoglobin (Hb) 12.7 g/dL (12.0-16.0); O2 Tension (PaO2) 90.6 mmHg (> 60.0); Potassium - ABG Lab 5.19 mmol/L (3.70-5.30); pH, Arterial 7.28 (7.35-7.45)
[2019-02-03 07:43] LABS: Puncture Site RB
[2019-02-03] MEDS ORDERED: methylPREDNISolone Sod Succ 40 MG VIAL IVP SCH ×3 (08:00→12:00)
[2019-02-03] MEDS ORDERED: Spironolactone 25 MG TAB PO SCH (08:00)
[2019-02-03 08:05] VITALS: TEMP 98.1
--- NOTE | 2019-02-03 08:39 | RAD ---
SINGLE VIEW CHEST: HISTORY: Increased shortness of breath. COMPARISON: 02/01/2019 FINDINGS: A single view of the chest shows an enlarged but stable cardiomediastinal silhouette. The pacemaker is unchanged in position. There is no evidence of consolidation, mass, or pleural effusion. IMPRESSION: Cardiomegaly without evidence of acute cardiopulmonary disease. POS: [facility]
[2019-02-03] MEDS ORDERED: Lisinopril 2.5 MG TAB PO SCH (09:00)
[2019-02-03] MEDS ORDERED: Lisinopril 5 MG TAB PO SCH (09:00)
[2019-02-03] MEDS ORDERED: Aspirin Chewable 81 MG TAB PO SCH (09:00)
[2019-02-03] MEDS ORDERED: Furosemide 20 MG/2 ML VIAL SLOW IVP SCH (09:00)
[2019-02-03] MEDS ORDERED: Carvedilol 3.125 MG TAB PO SCH (09:00)
[2019-02-03] MEDS ORDERED: Digoxin 0.125 MG TAB PO SCH (09:00)
[2019-02-03] MEDS ORDERED: Baclofen 10 MG TAB PO SCH ×2 (09:00)
[2019-02-03] MEDS ORDERED: glipiZIDE 5 MG TAB PO SCH (09:00)
[2019-02-03] MEDS: Senokot S 8.6-50 MG TAB PO SCH (09:14)
--- NOTE | 2019-02-03 09:43 | PDOC.PN ---
- Subjective Encounter Start Date: 02/03/19 Encounter Start Time: 07:30 -: old records requested/rev pt has dyspnea, no chest pain, her heart rate still not controlled Patient seen and examined. No overnight events - Objective Resuscitation Status - Order Detail: 02/02/19 00:12 Resuscitation Status Routine Co-Sign Provider: Resuscitation Status: FULL: Full Resuscitation Discussed with: Patient MAR Reviewed: Yes Vital Signs & Weight: Vital Signs (12 hours) Temp Pulse Resp BP Pulse Ox 02/03/19 09:14 126 H 02/03/19 09:12 126 H 02/03/19 08:16 37 H 02/03/19 07:56 98.1 F 126 H 145/72 H 96 02/03/19 07:14 97 02/03/19 03:22 98.2 F 147 H 26 H 160/80 H 96 02/03/19 01:42 90 16 97 02/03/19 00:00 98.1 F 140 H 24 H 118/74 99 02/02/19 22:07 102 H 20 97 Weight Admit Weight 107 lb 1.6 oz Weight 107 lb 1.6 oz I&O: 02/02/19 02/03/19 02/04/19 06:59 06:59 06:59 Intake Total 212 800 Output Total 650 900 Balance -438 -100 Result Diagrams: 02/03/19 04:28 02/03/19 04:28 Additional Labs: Accuchecks 02/02/19 02/02/19 02/02/19 20:36 16:46 11:07 POC Glucose 182 H 218 H 191 H Radiology Reviewed by me: Yes (echo reviewed, chest xray reviewed) EKG Reviewed by me: Yes (afib with rvr) Phys Exam - Physical Examination Constitutional: NAD HEENT: PERRLA, moist MMs, sclera anicteric Neck: no JVD, supple Respiratory: no rales distant heart sound Cardiovascular: no significant murmur, irregular Gastrointestinal: soft, non-tender, no distention, positive bowel sounds Musculoskeletal: no edema, pulses present Neurological: non-focal, normal sensation Lymphatic: no nodes Psychiatric: normal affect Skin: no rash, normal turgor Dx/Plan (1) Atrial fibrillation with RVR Code(s): I48.91 - UNSPECIFIED ATRIAL FIBRILLATION Status: Acute (2) COPD exacerbation Code(s): J44.1 - CHRONIC OBSTRUCTIVE PULMONARY DISEASE W (ACUTE) EXACERBATION Status: Acute (3) AICD (automatic cardioverter/defibrillator) present Code(s): Z95.810 - PRESENCE OF AUTOMATIC (IMPLANTABLE) CARDIAC DEFIBRILLATOR Status: Chronic (4) Atrial fibrillation Code(s): I48.91 - UNSPECIFIED ATRIAL FIBRILLATION Status: Chronic Qualifiers: Atrial fibrillation type: paroxysmal Qualified Code(s): I48.0 - Paroxysmal atrial fibrillation (5) CAD (coronary artery disease) Code(s): I25.10 - ATHSCL HEART DISEASE OF [place] CORONARY ARTERY W/O ANG PCTRS Status: Chronic Qualifiers: Coronary Disease-Associated Artery/Lesion type: [place] artery [place] vs. transplanted heart: [place] heart Associated angina: without angina Qualified Code(s): I25.10 - Atherosclerotic heart disease of [place] coronary artery without angina pectoris (6) COPD (chronic obstructive pulmonary disease) Status: Chronic Qualifiers: COPD type: chronic bronchitis (7) Chronic respiratory failure with hypoxia, on home O2 therapy Code(s): J96.11 - CHRONIC RESPIRATORY FAILURE WITH HYPOXIA; Z99.81 - DEPENDENCE ON SUPPLEMENTAL OXYGEN Status: Chronic (8) Chronic systolic heart failure, ACC/AHA stage C Code(s): I50.22 - CHRONIC SYSTOLIC (CONGESTIVE) HEART FAILURE Status: Chronic (9) Dyslipidemia Code(s): E78.5 - HYPERLIPIDEMIA, UNSPECIFIED Status: Chronic (10) Hypertension Code(s): I10 - ESSENTIAL (PRIMARY) HYPERTENSION Status: Chronic Qualifiers: Hypertension type: essential hypertension Qualified Code(s): I10 - Essential (primary) hypertension (11) Macrocytosis Code(s): D75.89 - OTHER SPECIFIED DISEASES OF BLOOD AND BLOOD-FORMING ORGANS Status: Chronic (12) Moderate mitral regurgitation by prior echocardiogram Code(s): I34.0 - NONRHEUMATIC MITRAL (VALVE) INSUFFICIENCY Status: Chronic (13) Moderate tricuspid regurgitation by prior echocardiogram Code(s): I07.1 - RHEUMATIC TRICUSPID INSUFFICIENCY Status: Chronic (14) PAD (peripheral artery disease) Code(s): I73.9 - PERIPHERAL VASCULAR DISEASE, UNSPECIFIED Status: Chronic (15) Pulmonary hypertension Code(s): I27.20 - PULMONARY HYPERTENSION, UNSPECIFIED Status: Chronic (16) Type 2 diabetes mellitus Status: Chronic Qualifiers: 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 will start solumedrol 40 mg iv q 8 hourly, add dulera 2 puff bid, and rocephin 1 gm iv daily * currently on amiodaron drip for rate control * will defer chronic anticoagulation to cardiology * medication reviewed as below * symptomatic treatment * home medication reconciled * add coreg and dc metoprolol * add lisinopril * will repeat labs tomorrow * add folic acid, vitamin B12. Review of Systems - Review of Systems ENT: negative: Ear Pain, Ear Discharge, Nose Pain, Nose Discharge, Nose Congestion, Mouth Pain, Mouth Swelling, Throat Pain, Throat Swelling, Other Respiratory: Shortness of Breath, SOB with Excertion. negative: Cough, Dry, Hemoptysis, Pleuritic Pain, Sputum, Wheezing Cardiovascular: negative: chest pain, palpitations, orthopnea, paroxysmal nocturnal dyspnea, edema, light headedness, other Gastrointestinal: negative: Nausea, Vomiting, Abdominal Pain, Diarrhea, Constipation, Melena, Hematochezia, Other Genitourinary: negative: Dysuria, Frequency, Incontinence, Hematuria, Retention , Other Musculoskeletal: negative: Neck Pain, Shoulder Pain, Arm Pain, Back Pain, Hand Pain, Leg Pain, Foot Pain, Other Skin: negative: Rash, Lesions, Gil, Bruising, Other - Medications/Allergies Allergies/Adverse Reactions: Allergies Allergy/AdvReac Type Severity Reaction Status Date / Time hydrocodone Allergy itching Verified 02/02/19 01:08 tizanidine [From Zanaflex] Allergy Verified 02/02/19 01:08 tramadol Allergy itching Verified 02/02/19 01:08 Medications: Current Medications Acetaminophen/Codeine Phosphate (Tylenol #3) 1 tab PO Q4H PRN PRN Reason: Pain Albuterol/Ipratropium (Duoneb) 3 ml NEB [id number] Last Admin: 02/03/19 09:44 Dose: Not Given Artificial Tears (Tears Naturale) 2 drop EA EYE PRN PRN PRN Reason: Dry Eyes Aspirin (Aspirin Chewable) 81 mg PO DAILY [facility] Last Admin: 02/03/19 09:09 Dose: 81 mg Atorvastatin Calcium (Lipitor) 20 mg PO [facility] Baclofen (Lioresal) 10 mg PO BID [facility] Last Admin: 02/03/19 09:13 Dose: 10 mg Bisacodyl (Dulcolax) 10 mg PO DAILYPRN PRN PRN Reason: Constipation Carvedilol (Coreg) 3.125 mg PO BID [facility] Last Admin: 02/03/19 09:13 Dose: 3.125 mg Dextrose/Water (Dextrose 50%) 25 gm SLOW IVP PRN PRN PRN Reason: Hypoglycemia Digoxin (Lanoxin) 0.125 mg PO DAILY [facility] Last Admin: 02/03/19 09:12 Dose: 0.125 mg Furosemide (Lasix) 20 mg SLOW IVP [facility]ILY [facility] Last Admin: 02/03/19 09:14 Dose: 20 mg Glipizide (Glucotrol) 5 mg PO DAILY [facility] Last Admin: 02/03/19 09:14 Dose: 5 mg Glucagon (Glucagon) 1 mg IM PRN PRN PRN Reason: Hypoglycemia Guaifenesin (Robitussin Sf) 200 mg PO Q4H PRN PRN Reason: Cough Hydralazine HCl (Apresoline) 10 mg SLOW IVP Q4H PRN PRN Reason: SBP > 180 and HR < 70 Dextrose/Water (D5w) 1,000 mls @ 0 mls/hr IV .Q0M PRN PRN Reason: Hypoglycemia Amiodarone HCl 450 mg/Miscellaneous Medication 1 each/ Dextrose/Water 259 mls @ 0 mls/hr IVPB [facility]F [facility]; Protocol Last Admin: 02/03/19 04:24 Dose: 259 mls Insulin Human Regular (Humulin R) 0 units SC .MILD SLIDING SCALE PRN PRN Reason: Mild Correctional Scale Last Admin: 02/02/19 18:02 Dose: 3 unit Insulin Human Regular (Humulin R) 0 units SC .BEDTIME SLIDING SC PRN PRN Reason: Bedtime Correctional Scale Lisinopril (Zestril) 2.5 mg PO DAILY [facility] Last Admin: 02/03/19 09:14 Dose: 2.5 mg Loperamide HCl (Imodium) 2 mg PO PRN PRN PRN Reason: Diarrhea/Loose Stools Loratadine (Claritin) 10 mg PO DAILYPRN PRN PRN Reason: Sinus Symptoms Methylprednisolone Sodium Succinate (Solu-Medrol) 40 mg IVP Q8H [facility] Last Admin: 02/03/19 09:15 Dose: 40 mg Mineral Oil/White Petrolatum (Eucerin Cream) 0 gm TOP BIDPRN PRN PRN Reason: Dry Skin Mometasone Furoate/Formoterol Fumar (Dulera 200 Mcg/5 Mcg Inhaler) 2 puff INH BID-[facility] Nitroglycerin (Nitrostat) 0.4 mg SL Q5MIN PRN PRN Reason: Chest Pain Ondansetron HCl (Zofran Odt) 4 mg PO Q6H PRN PRN Reason: Nausea/Vomiting Ondansetron HCl (Zofran) 4 mg IVP Q6H PRN PRN Reason: Nausea/Vomiting Pantoprazole Sodium (Protonix) 40 mg PO DAILY [facility] Last Admin: 02/03/19 09:14 Dose: 40 mg Senna/Docusate Sodium (Senokot S) 2 tab PO BID [facility] Last Admin: 02/03/19 09:14 Dose: 2 tab Sodium Chloride (Flush - Normal Saline) 10 ml IVF PRN PRN PRN Reason: Saline Flush Sodium Chloride (Lamb Nasal [place] 0.65%) 0 ml EA NARE QIDPRN PRN PRN Reason: Nasal Congestion Spironolactone (Aldactone) 25 mg PO [facility]AM[facility] Last Admin: 02/03/19 09:09 Dose: 25 mg Throat Lozenges (Cepastat Lozenges) 1 dariusz PO Q2H PRN PRN Reason: Sore Throat
[2019-02-03] MEDS ORDERED: cefTRIAXone\\ROCEPHIN 1 GM in Sodium Chloride 0.9% 100 ML IVPB SCH (10:00)
--- NOTE | 2019-02-03 11:04 | PDOC.EVN ---
Event Note - Event Note Event Note: pt is not doing well, family concerned about, she is hypoxic with little effort , unable to talk without dyspnea, will add pulmicort, increase solumedrol and transfer to IMCU, she may need bipap. discussed with family
[2019-02-03] MEDS ORDERED: Magnesium 2 GM/50 ML 2 GM in Premix Bag 1 BAG IVPB SCH (11:15)
[2019-02-03 12:47] LABS: Lavender RECEIVED; Red RECEIVED
[2019-02-03 12:55] LABS: Actual Bicarbonate (HCO3a) 38.8 mEq/L (22-28); Base Excess (BEa) 16.3 mEq/L (-2.0 to +3.0); Calcium, Ionized 0.74 mmol/L (1.12-1.30); Carboxyhemoglobin (COHb) 0.3 gm% (0.0-3.0); Hemoglobin (Hb) 10.2 g/dL (12.0-16.0); Potassium - ABG Lab 5.91 mmol/L (3.70-5.30)
[2019-02-03 13:08] LABS: O2 Tension (PaO2) 503.7 mmHg (> 60.0); pH, Arterial 7.63 (7.35-7.45)
[2019-02-03] MEDS ORDERED: EPINEPHrine 4 MG in Dextrose 5% in Water 250 ML IV SCH (13:15)
--- NOTE | 2019-02-03 13:20 | RAD ---
FPortable chest: Supine exam. INDICATIONS: Postintubation. COMPARISON: 02/03/2019 FINDINGS: Overlying artifact obscures detail. Cardiomegaly is stable. Mild vascular engorgement. No f ocal infiltrate or consolidation. IMPRESSION: No acute interval change in the appearance of the lung teran.
[2019-02-03] MEDS ORDERED: Fentanyl 100 MCG/2 ML VIAL ONE (14:07)
[2019-02-03] MEDS ORDERED: Fentanyl BOLUS 250 ML IVPB PRN (14:13)
[2019-02-03] MEDS ORDERED: Morphine 2 MG/ML SYRINGE SLOW IVP PRN (14:13)
[2019-02-03] MEDS ORDERED: DISCONTINUE PREVIOUS NARCOTIC PAIN MEDICATIONS AND BENZODIAZEPINES FS SCH (14:13)
[2019-02-03] MEDS ORDERED: Propofol 1,000 MG/100 ML VIAL IV PRN (14:13)
[2019-02-03] MEDS ORDERED: fentaNYL Citrate/PF 2,000 MCG in Sodium Chloride 0.9% 60 ML IV SCH (14:13)
[2019-02-03] MEDS ORDERED: Propofol BOLUS 1,000 MG/100 ML VIAL IV PRN (14:13)
[2019-02-03] MEDS ORDERED: Lorazepam 2 MG/ML VIAL SLOW IVP PRN (14:13)
--- NOTE | 2019-02-03 14:15 | PDOC.CTH ---
Cardiology Progress Note - Subjective She had a PEA arrest earlier today. She is now intubated, unresponsive on no sedation. - Objective Vital Signs Temp Pulse Resp BP Pulse Ox 02/03/19 09:14 126 H 02/03/19 09:12 126 H 02/03/19 08:16 37 H 02/03/19 07:56 98.1 F 126 H 145/72 H 96 02/03/19 07:14 97 02/03/19 03:22 98.2 F 147 H 26 H 160/80 H 96 02/03/19 01:42 90 16 97 Admit Weight 107 lb 1.6 oz Weight 107 lb 1.6 oz 02/02/19 02/03/19 02/04/19 06:59 06:59 06:59 Intake Total 212 800 Output Total 650 900 Balance -438 -100 - Physical Examination General/Neuro: other: (Intubated, unresponsive. ) Neck: no JVD present Lungs: other: (Reduced breath sounds bilat.) Heart: other: (Antonio, Irreg.) Abdomen: soft Extremities: other: (no edema) - Telemetry Telemetry Rhythm: Afib, SVR. - Labs Result Diagrams: 02/03/19 04:28 02/03/19 04:28 Troponin/CKMB Troponin I 0.014 ng/mL (< 0.028) 02/02/19 04:45
[2019-02-03 14:55] VITALS: BP 70/50
[2019-02-03] MEDS ORDERED: EPINEPHrine 1 MG/10 ML Abboject SYRINGE ONE (15:14)
--- NOTE | 2019-02-03 15:44 | DIS ---
DATE OF ADMISSION: 02/02/2019 DATE OF DISCHARGE: 02/03/2019 SUMMARY: PRIMARY CARE PHYSICIAN: Cameron Warner MD. DATE OF : February 03, 2019. PRIMARY CAUSE OF : 1. Atrial fibrillation with rapid ventricular response. 2. Chronic obstructive pulmonary disease exacerbation. 3. Acute on chronic respiratory failure with hypoxia and hypercapnia. CONTRIBUTING DIAGNOSES: Chronic systolic and diastolic heart failure stage C, moderate mitral and tricuspid regurgitation, peripheral arterial disease, pulmonary hypertension, diabetes type 2, hypertension, dyslipidemia, coronary artery disease. HOSPITAL SUMMARY: The patient was admitted by Analisa. Please see her H and P for further details. The patient was having shortness of breath. The patient was presented with atrial fibrillation with RVR in the emergency room. She was admitted to the hospital. Cardiology evaluated this patient. Cardiology started amiodarone drip. The patient had continues deterioration in her condition. She required transferred to [facility] this morning. Subsequently, she had code blue and the patient was successfully resuscitated and second time the patient had code blue and family decided to terminate code and the patient was and was pronounced. Cardiology and Pulmonary group were consulted while in hospital. Job ID: [id number]
--- NOTE | 2019-02-03 18:12 | PDOC.EVN ---
Event Note - Event Note Event Note: Code blue called. Pt previously intubated and compressions in progress on arrival. On initial rhythm check pt was in asystole as such epi given and compression resumed. This cycle was continued until a total of 2 epi was given. Pts daughter eventually arrived to room and asked resuscitation efforts be stopped. Pt remained asystole and pulseless. Entire code was approximately 8 minutes. Primary team arrived to declare shortly after end of code.
[2019-02-03] MEDS ORDERED: Mometasone/Formoterol 120 PUFF INHALER INH SCH (18:30)
[2019-02-03] MEDS ORDERED: Budesonide 0.5 MG/2 ML NEB INH SCH (18:30)
[2019-02-03] MEDS ORDERED: Pravastatin Sodium 20 MG TAB PO SCH (21:00)
[2019-02-03] MEDS ORDERED: Atorvastatin Calcium 20 MG TAB PO SCH (21:00)
[2019-02-03] MEDS ORDERED: guaiFENesin ER 600 MG TAB PO SCH (21:00)
--- NOTE | 2019-02-04 07:42 | OP ---
DATE OF PROCEDURE: 02/03/2019 Ms. Joseph is an 83-year-old female. Per my interview with the family, she has severe COPD. She has been unable to eat without getting short of breath for quite some time. Apparently, she also has a history of a cardiomyopathy and vascular disease. I was consulted when she was transferred to the intermediate care unit. Shortly after arrival, she had cardiac and respiratory arrest. She underwent a prolonged period of resuscitation and then was transferred to the critical care unit. Her right groin was prepped with chlorhexidine and Betadine because she needed central access. Her right femoral vein was cannulated, introducer was introduced, and then a triple-lumen catheter was inserted after a small incision. This was sewn in place. Good blood return was obtained, so this catheter was used through majority of her resuscitation. She was intubated during the code by Edmund, the flight nurse. She actually awakened when she was transferred down to the Critical Care Unit, so then she was started on fentanyl drip. I met with the family after the code, during the code, and at the beginning of the code. After the code, the daughter arrived and said that her mother was a fighter and she would absolutely want to do whatever was necessary. I explained the daughter that given the fact that she was on a very high dose epinephrine drip, it was likely she would arrest again. There was a grandson who was angry that she had received amiodarone, although he has no medical training. It is unclear whether or not he Googled amiodarone and read about potential side effects. In any event, I was able to calm him down. The daughter, however, was not willing to consider do not resuscitate status. The son said his mother would never want to go through all of this. She remained a full code. She had another cardiorespiratory arrest in a short period of CPR at this time without a response. The daughter was asked to come witness what her mother was going through and within a few minutes decided to withdraw the CPR attempts which would have been unsuccessful anyway. My understanding per the nurses was the family gave the name of a home and the body was to be released to the home. Critical care time, total 70 minutes done including placement of the central line. Job ID: [id number]
== END 2019-02-03 16:55 | disposition expired | DRG 208 ==
LOC: ERS 21:13 → 2SW 02-02 → OBSVTOIN 02-02 09:32 → IMCU/EMU 02-03 12:02 → CCU 02-03 14:01
PROVIDERS: ADMIT Internal Medicine; ATTEND Internal Medicine
PROC: 5A12012 Performance of Cardiac Output, Single, Manual (ICD-10-PCS; principal; 2019-02-03)
PROC: 5A1935Z Respiratory Ventilation, Less than 24 Consecutive Hours (ICD-10-PCS; 2019-02-03)
PROC: 5A2204Z Restoration of Cardiac Rhythm, Single (ICD-10-PCS; 2019-02-03)
PROC: 0BH17EZ Insertion of Endotracheal Airway into Trachea, Via Natural or Artificial Opening (ICD-10-PCS; 2019-02-03)
DX: J44.1 Chronic obstructive pulmonary disease with (acute) exacerbation (principal); J96.21 Acute and chronic respiratory failure with hypoxia; J96.22 Acute and chronic respiratory failure with hypercapnia; I50.42 Chronic combined systolic (congestive) and diastolic (congestive) heart failure; I42.0 Dilated cardiomyopathy; I46.9 Cardiac arrest, cause unspecified; I48.2 Chronic atrial fibrillation; I11.0 Hypertensive heart disease with heart failure; I08.1 Rheumatic disorders of both mitral and tricuspid valves; I27.20 Pulmonary hypertension, unspecified; E11.51 Type 2 diabetes mellitus with diabetic peripheral angiopathy without gangrene; M81.0 Age-related osteoporosis without current pathological fracture; I25.10 Atherosclerotic heart disease of native coronary artery without angina pectoris; D75.89 Other specified diseases of blood and blood-forming organs; K59.00 Constipation, unspecified; Z99.81 Dependence on supplemental oxygen; Z95.810 Presence of automatic (implantable) cardiac defibrillator; Z95.820 Peripheral vascular angioplasty status with implants and grafts; Z87.891 Personal history of nicotine dependence; Z91.81 History of falling; Z79.01 Long term (current) use of anticoagulants; Z79.84 Long term (current) use of oral hypoglycemic drugs; Z88.5 Allergy status to narcotic agent; Z88.8 Allergy status to other drugs, medicaments and biological substances
CPT/HCPCS: 36415; 36416; 71045; 80048; 81001; 82805; 83880; 84484; 85025; 87070; 87205; 93005; 93306; 94002; 94640; 94760; J0171; J0282; J1815; J1940; J2270; J2920; J3010; J7070; J7620; S0028